=== PATIENT | female | born 1940 | race Caucasian/White ===

== ENCOUNTER 2018-05-05 10:45 | Observation (INO) | payer OTHER, MEDICARE ==
--- NOTE | 2018-05-05 11:07 | PDOC ---
History of Present Illness <Sage Knox - Last Filed: 05/05/18 13:58> - General History Source: Patient Exam Limitations: No Limitations <Micheal Gutierrez - Last Filed: 05/05/18 14:30> - General Chief Complaint: Syncope/Near Syncope Stated Complaint: Syncope/Near Syncope Time Seen by Provider: 05/05/18 11:05 - History of Present Illness Initial Comments: 05/05/18 11:44 78y F hx of parkinsons, htn, presents with a presyncopal episode. Patient states she was feeling well this morning was brushing her teeth when she started to feel unwell, as she was leaving the bathroom her helped her assist her to a laying position on the floor. The patient denies any LOC however upon arrival of FD, they noted the patient was low lethargic, had weak pulses. By the time EMS arrived they noticed pts bp was int he 60s, and her mental status seemed to be improving. They did an EKG that appeared to be vfib. shortly aftewards the pt regained mental status. The patient states that she recalls being laid down and complaining to her about the dirty carpet - and recalls conversations the fire department was having upon their arrival and does not think she actually had LOC. She does complain of some mild abdominal cramping this morning when she was brushing her teeth and she does endorse having a loose bowel movement during her presyncopal episode, etc. abdominal pain is since resolved. The patient states she feels well denied any associated chest pain, lightheadedness, palpitations, nausea, vomiting, diaphoresis, diarrhea, BPR, melena, fever, chills, cough, shortness of breath, COCRHAN. PMD: Rosc card: gitig 05/05/18 12:26 (BrendaMicheal) Past History <Sage Knox - Last Filed: 05/05/18 13:58> - Past Medical History Anemia: No Asthma: No Cancer: No Cardiac Disorders: No CVA: No COPD: No CHF: No Dementia: No Diabetes: No GI Disorders: No Disorders: No HTN: Yes Hypercholesterolemia: No Liver Disease: No Seizures: No Thyroid Disease: Yes (parkinsons,) - Surgical History Abdominal Surgery: Yes (gb 26 yrs ago) Appendectomy: No Cardiac Surgery: No Cholecystectomy: Yes Lung Surgery: No Neurologic Surgery: No (2008) Orthopedic Surgery: No - Suicide/Smoking/Psychosocial Hx Smoking History: Former smoker Have you smoked in the past 12 months: No If you are a former smoker, when did you quit?: 45 years ago Information on smoking cessation initiated: No Hx Alcohol Use: No Drug/Substance Use Hx: No Substance Use Type: None Hx Substance Use Treatment: No <Micheal Gutierrez - Last Filed: 05/05/18 14:30> - Past Medical History Allergies/Adverse Reactions: Allergies Allergy/AdvReac Type Severity Reaction Status Date / Time iodine [Iodine] Allergy Intermediate Hives Verified 05/05/18 11:03 meperidine HCl [From Demerol] Allergy Intermediate Verified 05/05/18 11:03 morphine Allergy Intermediate Verified 05/05/18 11:03 chocolate flavor Allergy Verified 05/05/18 11:03 Penicillins Allergy Verified 05/05/18 11:03 MYCINS Allergy Intermediate Uncoded 05/05/18 11:03 Home Medications: Ambulatory Orders Aspirin [ASA -] 81 mg PO DAILY 02/13/16 Atorvastatin Ca [Lipitor] 10 mg PO HS 02/13/16 Carbidopa/Levodopa [Carbidopa-Levodopa 25-100 Tab] 2 each PO QID 02/13/16 Fosinopril Sodium [Fosinopril Sodium -] 20 mg PO ASDIR 02/13/16 Cardiac Specific PMH - Complaint Specific PMHX Pacemaker: No <Micheal Gutierrez - Last Filed: 05/05/18 14:30> Review of Systems <Sage Knox - Last Filed: 05/05/18 13:58> - Review of Systems Able to Perform ROS?: Yes <Micheal Gutierrez - Last Filed: 05/05/18 14:30> - Review of Systems Comments:: 05/05/18 12:17 Constitutional - no reported Fever, Chills, HEENT: no reported vision changes, sore throat Respiratory: no reported cough, sob, hemoptysis Cardiac: +presyncope no reported chest pain, palpitations, light headedness, leg swelling Abd/GI: + abd pain, diarrhea, no reported nausea, vomiting, blood per rectum, melena, : no reported dysuria, frequency, discharge Musculskelatal - no reported back pain, joint swelling skin - no reported bruising, erythema, rash neurological: no reported headache, numbness, focal weakness, tingling, ataxia, hematologic: no reported easy bruising, easy bleeding (Micheal Gutierrez) *Physical Exam <Sage Knox - Last Filed: 05/05/18 13:58> <Micheal Gutierrez - Last Filed: 05/05/18 14:30> - Vital Signs Last Vital Signs Temp Pulse Resp BP Pulse Ox 97.2 F L 69 20 123/42 L 97 05/05/18 10:54 05/05/18 12:03 05/05/18 12:03 05/05/18 12:03 05/05/18 12:03 - Physical Exam Comments: 05/05/18 12:18 GENERAL: The patient is awake, alert, and fully oriented, Nontoxic - in no acute distress. HEAD: Normocephalic, atraumatic. EYES: extraocular movements intact, sclera anicteric, conjunctiva clear. ENT: Normal voice, Moist mucous membranes. NECK: Normal range of motion, supple LUNGS: Breath sounds equal, clear to auscultation bilaterally. No wheezes, no rhonchi, no rales. HEART: Regular rate and rhythm, normal S1 and S2 without murmur, rub or gallop. ABDOMEN: Soft, nontender, No guarding, no rebound. No CVA tenderness EXTREMITIES: trace edema, rigidity, +tremors NEUROLOGICAL: No facial assymetry, Normal speech, PSYCH: Normal mood, normal affect. SKIN: Warm, Dry, normal turgor, (Micheal Gutierrez) Heart Score/ECG Review <Sage Knox - Last Filed: 05/05/18 13:58> <Micheal Gutierrez - Last Filed: 05/05/18 14:30> - ECG Impressions Comment:: 05/05/18 12:19 Twelve-lead EKG was performed and reviewed by me. There is normal sinus rhythm with a normal rate. rate of 66 The axis is normal. (Micheal Gutierrez) - Procedure Monitoring Vital Signs: Procedure Monitoring Vital Signs Temperature 97.2 F L 05/05/18 10:54 Pulse Rate 69 05/05/18 12:03 Respiratory Rate 20 05/05/18 12:03 Blood Pressure 123/42 L 05/05/18 12:03 O2 Sat by Pulse Oximetry (%) 97 05/05/18 12:03 ED Treatment Course - LABORATORY CBC & Chemistry Diagram: 05/05/18 11:30 05/05/18 11:30 <Sage Knox - Last Filed: 05/05/18 13:58> - LABORATORY CBC & Chemistry Diagram: 05/05/18 11:30 05/05/18 11:30 <Micheal Gutierrez - Last Filed: 05/05/18 14:30> - ADDITIONAL ORDERS Additional order review: Laboratory Results 05/05/18 05/05/18 05/05/18 11:30 11:30 11:30 PT with INR 11.80 INR 1.00 Sodium 136 Potassium 4.1 Chloride 103 Carbon Dioxide 22 Anion Gap 11 BUN 17 Creatinine 0.9 Creat Clearance w eGFR > 60 Random Glucose 110 H Calcium 9.2 Magnesium 1.9 Total Bilirubin 0.6 AST 20 ALT 25 Alkaline Phosphatase 76 Creatine Kinase 78 Troponin I < 0.02 B-Natriuretic Peptide 169.2 Total Protein 7.4 Albumin 4.1 05/05/18 11:30 RBC 4.09 MCV 99.8 H MCHC 34.2 RDW 13.7 MPV 8.4 Neutrophils % 92.3 H D Lymphocytes % 4.0 L D Monocytes % 2.9 L Eosinophils % 0.6 D Basophils % 0.2 - RADIOLOGY Radiology Studies Ordered: Category Date Time Status CHEST X-RAY PORTABLE* [RAD] Stat Radiology 05/05/18 11:10 Completed Medical Decision Making <Sage Knox - Last Filed: 05/05/18 13:58> <Micheal Gutierrez - Last Filed: 05/05/18 14:30> - Medical Decision Making 05/05/[address] Saba at 13:12. Awaiting call back from Cardiology at 13:18. Case discussed with Dr. Silva Cardiology at 13:56. (Sage Knox) 05/05/18 12:26 Concern for possible V. 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 We'll obtain blood work, troponins, electrolytes. Will discuss with cardiology and her primary care doctor, anticipate admission 05/05/18 13:43 The patient's lab work was reviewed it is notable for a elevated leukocytosis, unclear source of infection, awaiting UA. She has a left lites were unremarkable Patient has been normal sinus rhythm since her arrival. Question of whether her original EMS tracing was artifact versus V. fib will discuss with cardiology if V. fib will place an ICU for monitoring. 05/05/18 14:[address] silva thinks it is likely due to artifacts as there are visible qrs's. stable for telemetry Case discussed in detail with admitting physician including history, physical exam and ancillary studies. Admitting physician has assumed care for the patient, will follow all pending diagnostics and will complete the evaluation and treatment. (Micheal Gutierrez) *DC/Admit/Observation/Transfer <Sage Knox - Last Filed: 05/05/18 13:58> - Discharge Dispostion Decision to Admit order: Yes <Micheal Gutierrez - Last Filed: 05/05/18 14:30> Diagnosis at time of Disposition: Pre-syncope - Discharge Dispostion Condition at time of disposition: Stable - Attestations Scribe Attestion: Documentation prepared by Sage Knox, acting as neuropsychology medical consultant for Micheal Gutierrez MD. (Sage Knox)
[2018-05-05] MEDS ORDERED: CARBIDOPA/LEVODOPA 25/100 TABLET (FP) ONE ×2 (11:13→15:41)
[2018-05-05 11:58] LABS: BASO % 0.2 % (0-2.0); EOS % 0.6 % (0-4.5); HEMATOCRIT 40.8 % (32.4-45.2); MCH 34.1 pg (25.7-33.7); MCHC 34.2 g/dl (32.0-36.0); MEAN CELL VOLUME 99.8 fl (80-96); MEAN PLT VOLUME 8.4 fl (7.5-11.1); MONO % 2.9 % (3.8-10.2); NEUT % 92.3 % (42.8-82.8); PLATELET COUNT 247 K/MM3 (134-434); RBC 4.09 M/mm3 (3.60-5.2); RDW 13.7 % (11.6-15.6); WHITE BLOOD COUNT 15.4 K/mm3 (4.0-10.0)
[2018-05-05 12:23] LABS: PROTHROMBIN TIME (PATIENT) 11.8 SEC (9.7-13.0)
[2018-05-05 12:37] LABS: ALBUMIN 4.1 g/dl (3.4-5.0); ALK PHOS 76 U/L (45-117); ANION GAP 11 MMOL/L (8-16); BILIRUBIN,TOTAL 0.6 mg/dL (0.2-1); BLOOD UREA NITROGEN 17 mg/dL (7-18); CALCIUM 9.2 mg/dL (8.5-10.1); CHLORIDE 103 mmol/L (98-107); CO2 22 mmol/L (21-32); CREATININE 0.9 mg/dL (0.55-1.3); GLUCOSE,RANDOM 110 mg/dL (74-106); MAGNESIUM 1.9 mg/dL (1.8-2.4); POTASSIUM 4.1 mmol/L (3.5-5.1); SGOT/AST 20 U/L (15-37); SGPT/ALT 25 U/L (13-61); SODIUM 136 mmol/L (136-145); TOT PROT 7.4 g/dl (6.4-8.2)
--- NOTE | 2018-05-05 13:42 | EKG ---
Test Reason : Blood Pressure : / mmHG Vent. Rate : 066 BPM Atrial Rate : 066 BPM P-R Int : 144 ms QRS Dur : 092 ms QT Int : 410 ms P-R-T Axes : 089 -22 035 degrees QTc Int : 429 ms NORMAL SINUS RHYTHM BASELINE ARTIFACT WHEN COMPARED WITH ECG OF 13-FEB-2016 15:37, DIFFICULT TO COMPARE DUE TO PREVIOUS ECG ARTIFACTS Confirmed by DELFINO MARQUEZ MD ([id number]) on 05/05/2018 1:41:57 PM Referred By: Confirmed By:DELFINO MARQUEZ MD
--- NOTE | 2018-05-05 14:19 | HP ---
Admitting History and Physical - Primary Care Physician PCP: Daquan Saba - Admission Chief Complaint: pre-syncope History of Present Illness: 78 year old female pmh of HTN, HLD, Parkinson's disease presents with a pre- syncopal episode this am. Pt reports she was in the bathroom after having an episode of non bloody diarrhea and when leaving the bathroom, she felt very weak /fatigued where she was assisted to the floor by family. Son reports pt was lethargic during the episode which improved within half an hour or so. Pt denies any LOC or prodromal symptoms such as chest pain, lightheadedness, nausea , dizziness. She also denies any falls or trauma. Pt denies any fever/chills, sick contacts, dysuria, n/v, recent medication change. Upon arrival of EMS, pt' s BP was in 60s, ekg revealed a rhythm appeared to be vfib. Otherwise, pt reports feeling well at the moment without complaints. In ED, pt in NSR. Labs unremarkable. Discussed w/ cardiology, suspect possible artifact. 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: Parkinson's (s/p deep brain stimulator) Cardiovascular: Yes: HTN, Hyperlipdemia Heme/Onc: Yes: Cancer (lerft breast ca s/p lumpectomy, xrt) Musculoskeletal: Yes: Osteoarthritis, Other (scoliosis, cervical stenosis) - Past Surgical History Past Surgical History: Yes: Breast Biopsy, Cataract Removal, Cholecystectomy, Hysterectomy - Smoking History Smoking history: Former smoker Have you smoked in the past 12 months: No If you are a former smoker, when did you quit?: 45 years ago - Alcohol/Substance Use Hx Alcohol Use: No History of Substance Use: reports: None - Social History Usual Living Arrangement: Yes: With Spouse ADL: Family Assistance History of Recent Travel: No Home Medications - Allergies Allergies/Adverse Reactions: Allergies Allergy/AdvReac Type Severity Reaction Status Date / Time iodine [Iodine] Allergy Intermediate Hives Verified 05/05/18 11:03 meperidine HCl [From Demerol] Allergy Intermediate Verified 05/05/18 11:03 morphine Allergy Intermediate Verified 05/05/18 11:03 chocolate flavor Allergy Verified 05/05/18 11:03 Penicillins Allergy Verified 05/05/18 11:03 MYCINS Allergy Intermediate Uncoded 05/05/18 11:03 - Home Medications Home Medications: Ambulatory Orders Aspirin [ASA -] 81 mg PO DAILY 02/13/16 Atorvastatin Ca [Lipitor] 10 mg PO HS 02/13/16 Carbidopa/Levodopa [Carbidopa-Levodopa 25-100 Tab] 2 each PO TID 02/13/16 Fosinopril Sodium [Fosinopril Sodium -] 20 mg PO DAILY 02/13/16 Carbidopa/Levodopa [Carbidopa-Levodopa 25-100 Tab] 1 mg PO HS PRN 05/05/18 Family Disease History - Family Disease History Family Disease History: Other: Father (sepsis, at age 44), Mother (HTN, CVA ) Review of Systems Findings/Remarks: as per hpi Physical Examination Vital Signs: Vital Signs Temperature 97.2 F L 05/05/18 10:54 Pulse Rate 69 05/05/18 12:03 Respiratory Rate 20 05/05/18 12:03 Blood Pressure 123/42 L 05/05/18 12:03 O2 Sat by Pulse Oximetry (%) 97 05/05/18 12:03 Constitutional: Yes: Well Nourished, No Distress Cardiovascular: Yes: Regular Rate and Rhythm Respiratory: Yes: WNL, Regular, CTA Bilaterally. No: Accessory Muscle Use, SOB , Tachypnea, Wheezes Gastrointestinal: Yes: WNL, Normal Bowel Sounds, Soft, Abdomen, Obese. No: Distention, Tenderness Musculoskeletal: Yes: Back Pain Extremities: Yes: WNL Edema: Yes Edema: LLE: Trace, RLE: Trace Neurological: Yes: Alert, Oriented, Pre-Existing Deficit, Tremors. No: Lethargy Psychiatric: Yes: WNL, Alert, Oriented Labs: CBC, BMP 05/05/18 11:30 05/05/18 11:30 Problem List - Problems (1) Pre-syncope Assessment/Plan: suspect 2/2 vasovagal ekg- nsr, suspect vfib artifact pt at baseline now orthostatics ordered echo ordered carotids w/ b/l w/ hemodynamically sig stenosis, 50-69% vascular consulted, defer cta to vascular case discussed w/ cardiology tele monitoring Code(s): R55 - SYNCOPE AND COLLAPSE (2) Leukocytosis Assessment/Plan: trend if further diarrhea, will order cdiff ua/uc pending monitor Code(s): D72.829 - ELEVATED WHITE BLOOD CELL COUNT, UNSPECIFIED Qualifiers: Leukocytosis type: unspecified Qualified Code(s): D72.829 - Elevated white blood cell count, unspecified (3) Parkinson disease Assessment/Plan: stable continue sinemet PT eval Code(s): G20 - PARKINSON'S DISEASE (4) HTN (hypertension) Assessment/Plan: controlled continue home regimen Code(s): I10 - ESSENTIAL (PRIMARY) HYPERTENSION Qualifiers: Hypertension type: essential hypertension Qualified Code(s): I10 - Essential (primary) hypertension (5) HLD (hyperlipidemia) Assessment/Plan: chronic continue statin Code(s): E78.5 - HYPERLIPIDEMIA, UNSPECIFIED
--- NOTE | 2018-05-05 15:11 | CON.CARD ---
Consult Consult Specialty:: Cardiology Referred by:: Medicine Reason for Consultation:: near syncope - History of Present Illness Chief Complaint: near syncope History of Present Illness: 78F h/o parkinson's s/p brain stimulator, HTN p/w near syncope. Harrison unwell this morning after brushing teeth, felt lethargic, lightheadedness and son helped her to lie on the floor. felt diaphoretic as well no loss of consciousness, no chest pain, palps, dyspnea. Noted by EMS reportedly to have BP in 60s at the time as well, EKG concerning for vfib, was done with brain stimulator turned on, patient has tremor from parkinson's (tracing reviewed, likely sinus with artifact). 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 Cardio/Vascular: Yes: HTN Musculoskeletal: Yes: Osteoarthritis, Other (scoliosis, cervical stenosis) - Past Surgical History Past Surgical History: Yes: Breast Biopsy, Cataract Removal, Cholecystectomy, Hysterectomy - Alcohol/Substance Use Hx Alcohol Use: No - Smoking History Smoking history: Former smoker Have you smoked in the past 12 months: No If you are a former smoker, when did you quit?: 45 years ago Home Medications - Allergies Allergies/Adverse Reactions: Allergies Allergy/AdvReac Type Severity Reaction Status Date / Time iodine [Iodine] Allergy Intermediate Hives Verified 05/05/18 11:03 meperidine HCl [From Demerol] Allergy Intermediate Verified 05/05/18 11:03 morphine Allergy Intermediate Verified 05/05/18 11:03 chocolate flavor Allergy Verified 05/05/18 11:03 Penicillins Allergy Verified 05/05/18 11:03 MYCINS Allergy Intermediate Uncoded 05/05/18 11:03 - Home Medications Home Medications: Ambulatory Orders Aspirin [ASA -] 81 mg PO DAILY 02/13/16 Atorvastatin Ca [Lipitor] 10 mg PO HS 02/13/16 Carbidopa/Levodopa [Carbidopa-Levodopa 25-100 Tab] 2 each PO TID 02/13/16 Fosinopril Sodium [Fosinopril Sodium -] 20 mg PO DAILY 02/13/16 Carbidopa/Levodopa [Carbidopa-Levodopa 25-100 Tab] 1 mg PO HS PRN 05/05/18 Family Disease History - Family Disease History Family Disease History: Other: Father (sepsis, at age 44), Mother (HTN, CVA ) Review of Systems - Review of Systems Constitutional: reports: No Symptoms Eyes: reports: No Symptoms HENT: reports: No Symptoms Neck: reports: No Symptoms Cardiovascular: reports: No Symptoms Respiratory: reports: No Symptoms Gastrointestinal: reports: No Symptoms Genitourinary: reports: No Symptoms Musculoskeletal: reports: No Symptoms Integumentary: reports: No Symptoms Neurological: reports: No Symptoms Endocrine: reports: No Symptoms Hematology/Lymphatic: reports: No Symptoms Psychiatric: reports: No Symptoms Vital Signs: Vital Signs Temperature 97.2 F L 05/05/18 10:54 Pulse Rate 79 05/05/18 15:02 Respiratory Rate 20 05/05/18 15:02 Blood Pressure 137/47 L 05/05/18 15:02 O2 Sat by Pulse Oximetry (%) 97 05/05/18 12:03 Constitutional: Yes: No Distress, Calm Eyes: Yes: Conjunctiva Clear, EOM Intact HENT: Yes: Atraumatic, Normocephalic Neck: Yes: Supple, Trachea Midline Respiratory: Yes: Regular, CTA Bilaterally Gastrointestinal: Yes: Normal Bowel Sounds, Soft Cardiovascular: Yes: Regular Rate and Rhythm JVD: No Carotid Bruit: No PMI: Non-Displaced Heart Sounds: Yes: S1, S2 Musculoskeletal: No: Back Pain Extremities: No: Cold Edema: No Peripheral Pulses WNL: Yes Peripheral Pulses: 2+ Left Doralis Pedis, 2+ Right Dorsalis Pedis Integumentary: No: Jaundice Neurological: Yes: Alert, Oriented, Tremors Psychiatric: No: Agitated - Other Data Labs, Other Data: CBC, BMP 05/05/18 11:30 05/05/18 11:30 INR, PTT INR 1.00 (0.83-1.09) 05/05/18 11:30 Troponin, BNP 05/05/18 05/05/18 11:30 11:30 Troponin I < 0.02 B-Natriuretic Peptide 169.2 Troponin, BNP 05/05/18 05/05/18 11:30 11:30 Troponin I < 0.02 B-Natriuretic Peptide 169.2 Assessment/Plan EKG 04/2018 sinus, nl intervals, no ischemic changs, significant baseline artifact echo 02/2016: tds; nl lv, rv tds, butch, mod tr, nl rvsp carotid ultrasound 04/2018 mod size plaques with calcifications at R common carotid bifurcation with 50-69% stenosis, mod size plaques with calcifications at L common carotid bifurcation and bulb with stenosis 50-69% tele: sinus, significant artifact Assessment/Plan near syncope - reviewed tracing from EMS, likely artifact from parkinson's tremor also deep brain stimulator on, repeat EKG sinus rhythm - history most consistent with vasovagal - trop neg x 1 - monitoring on tele - echo ordered, if benign no further cardiac workup HTN -presently controlled, cont home meds carotid stenosis - plaque noted bilaterally at common carotid bifurcation - less likely etiology for syncope - continue aspirin, statin HPL: -cont statin parkinson's -on meds, per pmd/neuro
[2018-05-05 15:22] LABS: ANISOCYTOSIS 1+; MACROCYTOSIS 1+; PLATELET ESTIMATE NORMAL
--- NOTE | 2018-05-05 16:26 | ECHO ---
Name: MUMTAZNALRADHA, KATHERIN Exam:Adult Echocardiogram Study Date: 05/05/2018 03:09 PM Age: 78 yrs Reason For Study: PRE SYNCOPE Height: 64 in Weight: 160 lb BSA: 1.8 m2 MMode/2D Measurements & Calculations IVSd: 0.76 cm Ao root diam: 2.7 cm LVIDd: 4.2 cm LA dimension: 3.5 cm LVIDs: 3.0 cm LVPWd: 0.81 cm EDV(Teich): 78.0 ml ESV(Teich): 35.0 ml Procedure The study was technically limited with all images being suboptimal in quality. There was technical li mitations during this study due to uncooperative patient. A limited two-dimensional transthoracic echocardiogra m was performed (2D). Left Ventricle The left ventricle is normal in size. Left ventricular systolic function is normal. Ejection Fraction = 55- 60%. No regional wall motion abnormalities noted. Right Ventricle The right ventricle is not well visualized. Atria The left atrial size is normal. Right atrium not well visualized. Mitral Valve There is mild mitral annular calcification. There is no mitral regurgitation noted. Tricuspid Valve The tricuspid valve is not well visualized. Aortic Valve The aortic valve is not well visualized. Pulmonic Valve The pulmonic valve is not well visualized. Great Vessels The aortic root is normal size. Pericardium/Pleura There is no pericardial effusion. Interpretation Summary The study was technically limited with all images being suboptimal in quality. There was technical limitations during this study due to uncooperative patient. A limited two-dimensional transthoracic echocardiogram was performed (2D). The left ventricle is normal in size. Left ventricular systolic function is normal. No regional wall motion abnormalities noted. Ejection Fraction = 55-60%. The right ventricle is not well visualized. The left atrial size is normal. Right atrium not well visualized. There is mild mitral annular calcification. There is no pericardial effusion. Previous study is not available for comparison Zeke Knox MD 05/05/2018 04:26 PM
[2018-05-05 16:29] VITALS: BMI 29.3
[2018-05-05] MEDS: CARBIDOPA/LEVODOPA 25/100 TABLET (FP) PO SCH (20:14)
[2018-05-05] MEDS: ATORVASTATIN CA 10 MG TABLET (FP) PO SCH (22:31)
[2018-05-05 23:19] LABS: URINE APPEARANCE SLCLOUDY; URINE BILIRUBIN NEGATIVE (<2.0 mg/dL); URINE COLOR YELLOW; URINE GLUCOSE (UA) NEGATIVE (NEGATIVE); URINE KETONE TRACE (NEGATIVE); URINE LEUK ESTERASE NEGATIVE (NEGATIVE); URINE NITRITE NEGATIVE (NEGATIVE); URINE PROTEIN 1+ (NEGATIVE)
[2018-05-05 23:27] LABS: URINE MUCUS RARE
[2018-05-06] MEDS ORDERED: ACETAMINOPHEN 325 MG TABLET (FP) PO PRN (03:39)
[2018-05-06 06:09] LABS: BASO % 0.3 % (0-2.0); EOS % 0.7 % (0-4.5); HEMATOCRIT 35.6 % (32.4-45.2); HEMOGLOBIN 12.5 GM/dL (10.7-15.3); LYMPH % 9.9 % (8-40); MCH 34.4 pg (25.7-33.7); MCHC 35.1 g/dl (32.0-36.0); MEAN CELL VOLUME 97.9 fl (80-96); MEAN PLT VOLUME 8.3 fl (7.5-11.1); MONO % 10.9 % (3.8-10.2); NEUT % 78.2 % (42.8-82.8); PLATELET COUNT 207 K/MM3 (134-434); RBC 3.63 M/mm3 (3.60-5.2); RDW 13.7 % (11.6-15.6); WHITE BLOOD COUNT 5.5 K/mm3 (4.0-10.0)
[2018-05-06 06:19] LABS: CHOLESTEROL 119 mg/dL (50-200); HDL CHOLESTEROL 67 mg/dL (40-60); TRIGLYCERIDES 69 mg/dL (0-150)
[2018-05-06 06:25] LABS: ANION GAP 8 MMOL/L (8-16); BLOOD UREA NITROGEN 16 mg/dL (7-18); CALCIUM 7.6 mg/dL (8.5-10.1); CHLORIDE 103 mmol/L (98-107); CO2 25 mmol/L (21-32); CREATININE 0.7 mg/dL (0.55-1.3); GLUCOSE,RANDOM 96 mg/dL (74-106); MAGNESIUM 1.8 mg/dL (1.8-2.4); PHOSPHOROUS 2.6 mg/dL (2.5-4.9); POTASSIUM 3.8 mmol/L (3.5-5.1); SODIUM 135 mmol/L (136-145)
--- NOTE | 2018-05-06 07:39 | CONSULT ---
- Consultation REQUESTING PROVIDER: Ravi Jackson CONSULT REQUEST: We have been asked to surgically evaluate this patient for carotid stenosis PCP: Navid Hinojosa MD HPI: Called to eval 78yo female w/ PMHx as noted below. Per patient, while brushing her teeth yesterday morning, suddenly became dizzy/lightheaded. Called for her son to help her lie down on the floor. Patient states that while laying on the floor she became diaphoretic. Informs me that the event only lasted a minute or so...quickly resolved on it's own per patient. Denies CP, palpitations , COCHRAN, SOB prior too episode described above. Denies n/v/f/c, peripheral edema, irregular heart beat. Denies HAMPTON, parasthesias or mental status changes. States she has experienced this once before a few years ago, cardiac work-up negative per patient. Patient states she's had diarrhea prior to coming to hospital and that family members at home also have similar symptoms. While in the ED patient had a Carotid U/S as part of her NEAR SYNCOPE episode -- > moderate size plaques with calcifications at RCC bifurcation with 50-69% stenosis, moderate size plaques with calcifications at LCC bifurcation and bulb with stenosis 50-69%. EKG NSR @ 66bpm. Smoking history: Former smoker (quit 45 years ago) PMHx: Parkinson's, HTN, Osteoarthritis, Other (scoliosis, cervical stenosis) PSHx: Breast Biopsy, Cataract Removal, Cholecystectomy, Hysterectomy. Deep brain stimulator Home Meds Aspirin [ASA -] 81 mg PO DAILY 02/13/16 Atorvastatin Ca [Lipitor] 10 mg PO HS 02/13/16 Carbidopa/Levodopa [Carbidopa-Levodopa 25-100 Tab] 2 each PO TID 02/13/16 Fosinopril Sodium [Fosinopril Sodium -] 20 mg PO DAILY 02/13/16 Carbidopa/Levodopa [Carbidopa-Levodopa 25-100 Tab] 1 mg PO HS PRN 05/05/18 Allergies 3 iodine [Iodine] Allergy Intermediate Hives Verified 05/05/18 11:03 meperidine HCl [From Demerol] Allergy Intermediate Verified 05/05/18 11:03 morphine Allergy Intermediate Verified 05/05/18 11:03 chocolate flavor Allergy Verified 05/05/18 11:03 Penicillins Allergy Verified 05/05/18 11:03 MYCINS Allergy Intermediate Uncoded 05/05/18 11:03 ROS: CONSTITUTIONAL: Absent: generalized weakness, malaise, loss of appetite, weight change CARDIOVASCULAR: Absent: See HPI RESPIRATORY: Absent: cough, wheezing, stridor, hemoptysis GASTROINTESTINAL:Absent: abdominal pain, abdominal distension, diarrhea, constipation, melena, hematochezia GENITOURINARY: Absent: dysuria, frequency, urgency, hesitancy, hematuria, flank pain, genital pain MUSCULOSKELETAL: Absent: myalgia, arthralgia, joint swelling, back pain, neck pain SKIN: Absent: rash, itching, pallor HEMATOLOGIC/IMMUNOLOGIC: Absent: easy bleeding, easy bruising, lymphadenopathy NEUROLOGIC: Absent: focal weakness, unsteady gait, seizure PSYCHIATRIC: Absent: anxiety, depression, suicidal or homicidal ideation, hallucinations. PE: GENERAL: Awake, alert, and fully oriented, in no acute distress. HEAD: Normal with no signs of trauma. EYES: PERRL, sclera anicteric, conjunctiva clear. NECK: Normal ROM, supple without lymphadenopathy, JVD, or masses. Negative bruit LUNGS: CTA bilat. No wheezes, and no crackles. No accessory muscle use. HEART: RRR. No murmurs detected. ABD: Soft, NT. ND. MUSCULOSKELETAL: Normal ROM at all joints. No bony deformities or tenderness. No CVA tenderness. UE: 2+ pulses, warm, well-perfused. No cyanosis. Cap refill <2 seconds. No peripheral edema. LE: 2+ pulses, warm, well-perfused. No calf tenderness. No peripheral edema. NEUROLOGICAL: Normal speech, gait not observed. PSYCH: Cooperative. Good eye contact. Appropriate mood and affect. SKIN: Warm, dry, normal turgor, no rashes or lesions noted. Last Vital Signs Temp Pulse Resp BP Pulse Ox 98.6 F 59 L 16 132/53 L 94 L 05/06/18 06:00 05/06/18 06:00 05/06/18 06:00 05/06/18 06:00 05/06/18 05:48 CBC, BMP 05/06/18 05:15 05/06/18 05:15 INR, PTT INR 1.00 (0.83-1.09) 05/05/18 11:30 Problem List - Problems (1) Near syncope Assessment/Plan: Admitted to [facility] s/p near syncopal episode. Mild dehydration most likely secondary to diarrhea (resolved) coupled with decreased PO intake Cont Tele monitoring Findings on U/S reviewed Cardio following DVT PPX No vascular surgical intervention Replete elytes PRN Above plan discussed with Dr. Marvin and agrees Code(s): R55 - SYNCOPE AND COLLAPSE (2) HTN (hypertension) Code(s): I10 - ESSENTIAL (PRIMARY) HYPERTENSION Qualifiers: Hypertension type: essential hypertension Qualified Code(s): I10 - Essential (primary) hypertension (3) Parkinson disease Code(s): G20 - PARKINSON'S DISEASE Visit type - Case Type Case Type: ED Admission - Emergency Emergency Visit: Yes ED Registration Date: 05/05/18 Care time: The patient presented to the Emergency Department on the above date and was hospitalized for further evaluation of their emergent condition. - New patient This patient is new to me today: Yes Date on this admission: 05/06/18
[2018-05-06] MEDS: LISINOPRIL 20 MG TABLET (FP) PO SCH ×2 (08:32→09:29)
--- NOTE | 2018-05-06 09:03 | PN ---
Progress Note (short form) - Note Progress Note: s: no chest pain, palps, dizziness, dyspnea, edema Vital Signs: Vital Signs Period Temp Pulse Resp BP Sys/Hernandez Pulse Ox Last 24 Hr 97.2 F-100.1 F 59-79 16-22 116-158/42-66 92-97 Constitutional: Yes: No Distress, Calm Eyes: Yes: Conjunctiva Clear, EOM Intact HENT: Yes: Atraumatic, Normocephalic Neck: Yes: Supple, Trachea Midline Respiratory: Yes: Regular, CTA Bilaterally Gastrointestinal: Yes: Normal Bowel Sounds, Soft Cardiovascular: Yes: Regular Rate and Rhythm JVD: No Carotid Bruit: No PMI: Non-Displaced Heart Sounds: Yes: S1, S2 Musculoskeletal: No: Back Pain Extremities: No: Cold Edema: No Peripheral Pulses WNL: Yes Peripheral Pulses: 2+ Left Doralis Pedis, 2+ Right Dorsalis Pedis Integumentary: No: Jaundice Neurological: Yes: Alert, Oriented, Tremors Psychiatric: No: Agitated Assessment/Plan EKG 04/2018 sinus, nl intervals, no ischemic changs, significant baseline artifact echo 02/2016: tds; nl lv, rv tds, butch, mod tr, nl rvsp echo 04/2018 tds, nl LV fn, RV not well visualized, mild MAC carotid ultrasound 04/2018 mod size plaques with calcifications at R common carotid bifurcation with 50-69% stenosis, mod size plaques with calcifications at L common carotid bifurcation and bulb with stenosis 50-69% tele: sinus, artifact Assessment/Plan near syncope - reviewed tracing from EMS, likely artifact from parkinson's tremor also deep brain stimulator on, repeat EKG sinus rhythm - history most consistent with vasovagal - trop neg x 2 - no events on tele - echo unremarkable HTN -presently controlled, cont home meds carotid stenosis - plaque noted bilaterally at common carotid bifurcation - less likely etiology for syncope - continue aspirin, statin HPL: -cont statin parkinson's -on meds, per pmd/neuro
--- NOTE | 2018-05-06 09:54 | PN ---
Progress Note, Physician Chief Complaint: Pt lying in bed in no acute distress. reports feeling well. no more diarrhea since yesterday. denies any chest pain, sob, n/v. pt reports everyone at home is also sick w/ fever/diarrhea - Current Medication List Current Medications: Active Medications Acetaminophen (Tylenol -) 650 mg PO Q6H PRN PRN Reason: Fever Or Pain Level 1-5 Last Admin: 05/06/18 03:56 Dose: 650 mg Aspirin (Asa -) 81 mg PO DAILY [facility] Atorvastatin Calcium (Lipitor -) 10 mg PO HS [facility] Last Admin: 05/05/18 22:31 Dose: 10 mg Carbidopa/Levodopa (Sinemet 25/100 -) 2 each PO TID@1000,1400,1800 [facility] Last Admin: 05/05/18 20:14 Dose: 2 each Lisinopril (Prinivil) 20 mg PO DAILY [facility] Last Admin: 05/06/18 09:29 Dose: Not Given Magnesium Sulfate (Magnesium Sulf 2 G/50 Ml Bag) 2 gm IVPB ONCE ONE Stop: 05/06/18 10:01 - Objective Vital Signs: Vital Signs Temperature 98.6 F 05/06/18 06:00 Pulse Rate 59 L 05/06/18 06:00 Respiratory Rate 16 05/06/18 06:00 Blood Pressure 132/53 L 05/06/18 06:00 O2 Sat by Pulse Oximetry (%) 94 L 05/06/18 09:04 Constitutional: Yes: Well Nourished, No Distress Cardiovascular: Yes: Regular Rate and Rhythm Respiratory: Yes: WNL, Regular, CTA Bilaterally, On Nasal O2. No: Accessory Muscle Use, SOB, Tachypnea, Wheezes Gastrointestinal: Yes: WNL, Normal Bowel Sounds, Soft, Abdomen, Obese. No: Distention, Tenderness Genitourinary: Yes: WNL Extremities: Yes: WNL Edema: No Neurological: Yes: WNL, Alert, Oriented, Tremors Psychiatric: Yes: WNL, Alert, Oriented Labs: CBC, BMP 05/06/18 05:15 05/06/18 05:15 INR, PTT INR 1.00 (0.83-1.09) 05/05/18 11:30 Assessment/Plan (1) Pre-syncope Assessment/Plan: pt currently at baseline suspect possible vasovagal episode at home ekg- nsr echo unremarkable carotids w/ b/l w/ hemodynamically sig stenosis, 50-69%- no further intervention per vascular case discussed w/ cardiology tele monitoring Code(s): R55 - SYNCOPE AND COLLAPSE (2) Leukocytosis Assessment/Plan: resolved Code(s): D72.829 - ELEVATED WHITE BLOOD CELL COUNT, UNSPECIFIED Qualifiers: Leukocytosis type: unspecified Qualified Code(s): D72.829 - Elevated white blood cell count, unspecified (3) Fever Assessment/Plan: febrile overnight family sick w/ diarrhea/fever suspect viral gasteroenteritis await blood/urine cultures pt needs to afebrile for 24 hours before d/c Code(s): R50.9 - FEVER, UNSPECIFIED Qualifiers: Encounter type: initial encounter (4) Parkinson disease Assessment/Plan: stable continue sinemet PT eval Code(s): G20 - PARKINSON'S DISEASE (5) HTN (hypertension) Assessment/Plan: controlled continue home regimen Code(s): I10 - ESSENTIAL (PRIMARY) HYPERTENSION Qualifiers: Hypertension type: essential hypertension Qualified Code(s): I10 - Essential (primary) hypertension (6) HLD (hyperlipidemia) Assessment/Plan: chronic continue statin Code(s): E78.5 - HYPERLIPIDEMIA, UNSPECIFIED Dispo: Home w/ VNS, anticipate discharge tomorrow if no clinical changes
[2018-05-06] MEDS ORDERED: ASPIRIN 81 MG CHEWABLE TABLETS PO SCH ×2 (10:00→22:00)
[2018-05-06] MEDS ORDERED: MAGNESIUM 2GM/50ML STERILE WATER IVPB IVPB ONE (10:00)
[2018-05-06] MEDS: CARBIDOPA/LEVODOPA 25/100 TABLET (FP) PO SCH ×3 (10:08→18:32)
[2018-05-06] MEDS: ATORVASTATIN CA 10 MG TABLET (FP) PO SCH (21:54)
[2018-05-07 06:01] LABS: BASO % 0.6 % (0-2.0); EOS % 6.5 % (0-4.5); HEMATOCRIT 35.8 % (32.4-45.2); HEMOGLOBIN 12.5 GM/dL (10.7-15.3); LYMPH % 22.5 % (8-40); MCH 34.4 pg (25.7-33.7); MCHC 34.8 g/dl (32.0-36.0); MEAN CELL VOLUME 98.8 fl (80-96); MEAN PLT VOLUME 8.7 fl (7.5-11.1); MONO % 12.2 % (3.8-10.2); NEUT % 58.2 % (42.8-82.8); PLATELET COUNT 188 K/MM3 (134-434); RBC 3.62 M/mm3 (3.60-5.2); RDW 13.5 % (11.6-15.6); WHITE BLOOD COUNT 5.7 K/mm3 (4.0-10.0)
[2018-05-07 06:33] LABS: ANION GAP 8 MMOL/L (8-16); BLOOD UREA NITROGEN 17 mg/dL (7-18); CALCIUM 8.1 mg/dL (8.5-10.1); CHLORIDE 105 mmol/L (98-107); CO2 25 mmol/L (21-32); CREATININE 0.6 mg/dL (0.55-1.3); GLUCOSE,RANDOM 86 mg/dL (74-106); MAGNESIUM 2.1 mg/dL (1.8-2.4); PHOSPHOROUS 2.8 mg/dL (2.5-4.9); POTASSIUM 3.9 mmol/L (3.5-5.1); SODIUM 137 mmol/L (136-145)
--- NOTE | 2018-05-07 09:33 | DS ---
Physical Examination Vital Signs: Vital Signs Temperature 98.4 F 05/07/18 06:00 Pulse Rate 52 L 05/07/18 06:00 Respiratory Rate 18 05/07/18 06:00 Blood Pressure 134/58 L 05/07/18 06:00 O2 Sat by Pulse Oximetry (%) 93 L 05/06/18 20:00 Constitutional: Yes: Well Nourished, No Distress, Calm Cardiovascular: Yes: Regular Rate and Rhythm Respiratory: Yes: WNL, Regular, CTA Bilaterally. No: Tachypnea, Wheezes Gastrointestinal: Yes: WNL, Normal Bowel Sounds, Soft. No: Distention, Tenderness Renal/: Yes: WNL Extremities: Yes: WNL Edema: No Neurological: Yes: WNL, Alert, Oriented Psychiatric: Yes: WNL, Alert, Oriented Labs: CBC, BMP 05/07/18 05:15 05/07/18 05:15 Discharge Summary Reason For Visit: PRE SYNCOPE,PARKINSON'S DISEASE Current Active Problems Fever (Acute) HLD (hyperlipidemia) (Acute) Near syncope (Acute) Pre-syncope (Acute) Hospital Course: 78 year old female admitted for evaluation of pre-syncope or suspect vfib/tach. Pt evaluated by cardiology, all cardiac work up negative, suspect rhythm artifact from tremors/dbs. Pt had fever during her course of stay, all cultures and infectious work up negative. Family at home sick w/ diarrhea/fever. Suspect viral gastroenteritis. Pt has remained in SR. vitals stable. Cleared by cardiology. Pt is medically stable for discharge home. Son informed of discharge. case discussed with pt's PCP. 35 minutes spent in discharge planning Condition: Stable - Instructions Diet, Activity, Other Instructions: resume prev diet, activity as tolerated maintain adequate hydration fall precautions follow up as directed Referrals: Tone Rice MD [Staff Physician] - 2 Weeks Daquan Saba MD [Primary Care Provider] - 1 Week Disposition: VNS/HOME HEALTH CARE - Home Medications Comprehensive Discharge Medication List: Ambulatory Orders Aspirin [ASA -] 81 mg PO DAILY 02/13/16 Atorvastatin Ca [Lipitor] 10 mg PO HS 02/13/16 Carbidopa/Levodopa [Carbidopa-Levodopa 25-100 Tab] 2 each PO TID 02/13/16 Fosinopril Sodium [Fosinopril Sodium -] 20 mg PO DAILY 02/13/16 Carbidopa/Levodopa [Carbidopa-Levodopa 25-100 Tab] 1 mg PO HS PRN 05/05/18
[2018-05-07 09:52] LABS: ANISOCYTOSIS 1+; MACROCYTOSIS 1+; PLATELET ESTIMATE NORMAL
[2018-05-07] MEDS: CARBIDOPA/LEVODOPA 25/100 TABLET (FP) PO SCH (09:54)
[2018-05-07] MEDS: LISINOPRIL 20 MG TABLET (FP) PO SCH (09:54)
--- NOTE | 2018-05-07 10:14 | PN ---
Progress Note (short form) - Note Progress Note: s: no chest pain, palps, dizziness, dyspnea, edema Vital Signs: Vital Signs Period Temp Pulse Resp BP Sys/Hernandez Pulse Ox Last 24 Hr 98 F-98.4 F 52-70 18-22 90-142/40-58 93-93 Constitutional: Yes: No Distress, Calm Eyes: Yes: Conjunctiva Clear, EOM Intact HENT: Yes: Atraumatic, Normocephalic Neck: Yes: Supple, Trachea Midline Respiratory: Yes: Regular, CTA Bilaterally Gastrointestinal: Yes: Normal Bowel Sounds, Soft Cardiovascular: Yes: Regular Rate and Rhythm JVD: No Carotid Bruit: No PMI: Non-Displaced Heart Sounds: Yes: S1, S2 Musculoskeletal: No: Back Pain Extremities: No: Cold Edema: No Peripheral Pulses WNL: Yes Peripheral Pulses: 2+ Left Doralis Pedis, 2+ Right Dorsalis Pedis Integumentary: No: Jaundice Neurological: Yes: Alert, Oriented, Tremors Psychiatric: No: Agitated Current Medications Acetaminophen (Tylenol -) 650 mg PO Q6H PRN PRN Reason: Fever Or Pain Level 1-5 Last Admin: 05/06/18 03:56 Dose: 650 mg Aspirin (Asa -) 81 mg PO HS [facility] Last Admin: 05/06/18 21:54 Dose: 81 mg Atorvastatin Calcium (Lipitor -) 10 mg PO HS [facility] Last Admin: 05/06/18 21:54 Dose: 10 mg Carbidopa/Levodopa (Sinemet 25/100 -) 2 each PO TID@1000,1400,1800 [facility] Last Admin: 05/07/18 09:54 Dose: 2 each Lisinopril (Prinivil) 20 mg PO DAILY [facility] Last Admin: 05/07/18 09:54 Dose: 20 mg Assessment/Plan EKG 04/2018 sinus, nl intervals, no ischemic changs, significant baseline artifact echo 02/2016: tds; nl lv, rv tds, btuch, mod tr, nl rvsp echo 04/2018 tds, nl LV fn, RV not well visualized, mild MAC carotid ultrasound 04/2018 mod size plaques with calcifications at R common carotid bifurcation with 50-69% stenosis, mod size plaques with calcifications at L common carotid bifurcation and bulb with stenosis 50-69% tele: sinus, artifact Assessment/Plan near syncope - reviewed tracing from EMS, likely artifact from parkinson's tremor also deep brain stimulator on, repeat EKG sinus rhythm - history most consistent with vasovagal, dehydration causing near syncope, unlikely cardiac etiology - trop neg x 2 - no events on tele - echo unremarkable HTN -presently controlled, cont home meds carotid stenosis - plaque noted bilaterally at common carotid bifurcation - less likely etiology for syncope - continue aspirin, statin HPL: -cont statin parkinson's -on meds, per pmd/neuro
[2018-05-07 10:57] VITALS: BP 147/62; PULSE 64
[2018-05-07 11:00] VITALS: TEMP 98.3
== END 2018-05-07 14:30 | disposition home health service (06) ==
LOC: JER 10:45 → JERBED 14:17 → J2W 16:28
PROVIDERS: ADMIT Internal Medicine; ATTEND Nurse Practitioner Family
PROC: 3E033GC Introduction of Other Therapeutic Substance into Peripheral Vein, Percutaneous Approach (ICD-10-PCS; principal; 2018-05-05)
DX: R55 Syncope and collapse (principal); D72.829 Elevated white blood cell count, unspecified; G20 Parkinson's disease; I10 Essential (primary) hypertension; E78.5 Hyperlipidemia, unspecified; R50.9 Fever, unspecified; Z87.891 Personal history of nicotine dependence; Z88.0 Allergy status to penicillin; Z88.6 Allergy status to analgesic agent; Z79.82 Long term (current) use of aspirin; I65.23 Occlusion and stenosis of bilateral carotid arteries
CPT/HCPCS: 36415; 71045-TC-FY; 80048; 80053; 80061; 81003; 81015; 82550; 83721; 83735; 83880; 84100; 84484; 85025; 85610; 87040; 87086; 93005; 93010; 93306-TC; 93880-TC; 94010; 96374; 97116-GP; 97161-GP; 99285-25; G0378

== ENCOUNTER 2018-12-20 17:39 | Emergency (ER) | payer OTHER, MEDICARE ==
[2018-12-20 17:54] VITALS: BP 138/84; PULSE 94; TEMP 98.8; BMI 27.4
[2018-12-20] MEDS ORDERED: SODIUM CHLORIDE 500 ML IV STA (18:51)
[2018-12-20 19:07] LABS: BASO % 0.4 % (0-2.0); EOS % 2.4 % (0-4.5); HEMATOCRIT 36.1 % (32.4-45.2); LYMPH % 15.9 % (8-40); MCH 32.9 pg (25.7-33.7); MCHC 33.2 g/dl (32.0-36.0); MEAN CELL VOLUME 99.1 fl (80-96); MEAN PLT VOLUME 8.5 fl (7.5-11.1); MONO % 8.6 % (3.8-10.2); NEUT % 72.7 % (42.8-82.8); PLATELET COUNT 249 K/MM3 (134-434); RBC 3.65 M/mm3 (3.60-5.2); WHITE BLOOD COUNT 9.2 K/mm3 (4.0-10.0)
[2018-12-20 19:16] LABS: INR 1.02 (0.83-1.09)
[2018-12-20 19:37] LABS: ALBUMIN 3.6 g/dl (3.4-5.0); ALK PHOS 90 U/L (45-117); ANION GAP 7 MMOL/L (8-16); BILIRUBIN,TOTAL 0.5 mg/dL (0.2-1); BLOOD UREA NITROGEN 14.8 mg/dL (7-18); CHLORIDE 102 mmol/L (98-107); CO2 28 mmol/L (21-32); CREATININE 0.7 mg/dL (0.55-1.3); GLUCOSE,RANDOM 91 mg/dL (74-106); MAGNESIUM 2.2 mg/dL (1.8-2.4); N-TERMINAL BNP 290.3 pg/ml (5-450); POTASSIUM 4.1 mmol/L (3.5-5.1); SGOT/AST 15 U/L (15-37); SGPT/ALT 8 U/L (13-61); SODIUM 137 mmol/L (136-145); TOT PROT 6.7 g/dl (6.4-8.2)
--- NOTE | 2018-12-20 19:58 | PDOC ---
Attending Attestation - Resident Resident Name: La NenaYair - ED Attending Attestation I have performed the following: I have examined & evaluated the patient, The case was reviewed & discussed with the resident, I agree w/resident's findings & plan - HPI HPI: 12/20/18 21:07 Pt came in for a sense of generalized weakness. She has no other complaints.She has a hx of Parkingson's disease and she has to get up 4x nightly to urinate and this has been going on for a long time. SHe has no dysuria. She has no fevers and no chills and she has a normal diet. She lives with her and her son is at her side. Pt is A+Ox3 - Physicial Exam PE: 12/20/18 21:09 Agree with resident exam. Pt has clear lung field and Normal Heart rate. SHe has no flnak pain and no abd pain. She has slight pitting edema of her legs. She has no rashes. SHe is moving all her extremities. - Medical Decision Making 12/22/18 04:05 Labs normal; UA normal; Pt reassured and she went home with her son and her son in law.
--- NOTE | 2018-12-20 20:29 | PDOC ---
History of Present Illness - General Chief Complaint: Weakness Stated Complaint: HI BLOOD PRESSURE Time Seen by Provider: 12/20/18 19:51 History Source: Patient Exam Limitations: No Limitations Past History - Past Medical History Allergies/Adverse Reactions: Allergies Allergy/AdvReac Type Severity Reaction Status Date / Time iodine [Iodine] Allergy Intermediate Hives Verified 05/05/18 11:03 meperidine HCl [From Demerol] Allergy Intermediate Verified 05/05/18 11:03 morphine Allergy Intermediate Verified 05/05/18 11:03 chocolate flavor Allergy Verified 05/05/18 11:03 Penicillins Allergy Verified 05/05/18 11:03 MYCINS Allergy Intermediate Uncoded 05/05/18 11:03 Home Medications: Ambulatory Orders Aspirin [ASA -] 81 mg PO DAILY 02/13/16 Atorvastatin Ca [Lipitor] 10 mg PO HS 02/13/16 Carbidopa/Levodopa [Carbidopa-Levodopa 25-100 Tab] 2 each PO TID 02/13/16 Fosinopril Sodium [Fosinopril Sodium -] 20 mg PO DAILY 02/13/16 Carbidopa/Levodopa [Carbidopa-Levodopa 25-100 Tab] 1 mg PO HS PRN 05/05/18 Anemia: No Asthma: No Cancer: No Cardiac Disorders: No CVA: No COPD: No CHF: No Dementia: No Diabetes: No GI Disorders: No Disorders: No HTN: Yes Hypercholesterolemia: No Liver Disease: No Seizures: No Thyroid Disease: Yes (parkinsons,) - Surgical History Abdominal Surgery: Yes (gb 26 yrs ago) Appendectomy: No Cardiac Surgery: No Cholecystectomy: Yes Lung Surgery: No Neurologic Surgery: No (2008) Orthopedic Surgery: No - Suicide/Smoking/Psychosocial Hx Smoking History: Never smoked Have you smoked in the past 12 months: No If you are a former smoker, when did you quit?: 45 years ago Information on smoking cessation initiated: No Hx Alcohol Use: No Drug/Substance Use Hx: No Substance Use Type: None Hx Substance Use Treatment: No *Physical Exam - Vital Signs Last Vital Signs Temp Pulse Resp BP Pulse Ox 98.8 F 94 H 20 138/84 12/20/18 17:52 12/20/18 17:52 12/20/18 17:52 12/20/18 17:52 ED Treatment Course - LABORATORY CBC & Chemistry Diagram: 12/20/18 18:59 12/20/18 18:59 - ADDITIONAL ORDERS Additional order review: Laboratory Results 12/20/18 12/20/18 18:59 18:59 PT with INR 12.00 INR 1.02 Sodium 137 Potassium 4.1 Chloride 102 Carbon Dioxide 28 Anion Gap 7 L BUN 14.8 Creatinine 0.7 Est GFR (CKD-EPI)AfAm 94.84 Est GFR (CKD-EPI)NonAf 81.83 Random Glucose 91 Calcium 9.0 Magnesium 2.2 Total Bilirubin 0.5 AST 15 ALT 8 L Alkaline Phosphatase 90 Creatine Kinase 55 Troponin I < 0.02 B-Natriuretic Peptide 290.3 Total Protein 6.7 Albumin 3.6 TSH 2.26 12/20/18 18:59 RBC 3.65 MCV 99.1 H MCHC 33.2 RDW 14.0 MPV 8.5 Neutrophils % 72.7 D Lymphocytes % 15.9 D Monocytes % 8.6 Eosinophils % 2.4 Basophils % 0.4 - RADIOLOGY Radiology Studies Ordered: Category Date Time Status CHEST X-RAY PORTABLE* [RAD] Stat Radiology 12/20/18 18:51 Taken - Medications Given in the ED: ED Medications Discontinued Medications Generic Name Dose Route Start Last Admin Trade Name Freq PRN Reason Stop Dose Admin Sodium Chloride 500 mls @ 500 mls/hr 12/20/18 18:51 12/20/18 19:14 Normal Saline - IV 12/20/18 19:50 500 mls/hr ASDIR STA Administration *DC/Admit/Observation/Transfer Diagnosis at time of Disposition: Weakness, Parkinson disease, HLD (hyperlipidemia) - Discharge Dispostion Disposition: HOME Decision to Admit order: No - Referrals Referrals: Daquan Saba MD [Primary Care Provider] - - Patient Instructions Printed Discharge Instructions: DI for Muscle Weakness Additional Instructions: You were seen in the emergency department for the evaluation of your weakness. Your labs are within normal limits., Your heart rhythm is unchanged from previous. Your chest xray was within normal limits. Please follow up with your primary medical doctor within 1 week after discharge. Please return to our department if you have worsening symptoms or new concerning symptoms. Thank you. - Post Discharge Activity
[2018-12-20] MEDS ORDERED: LISINOPRIL 5 MG TABLET (FP) PO ONE (21:05)
[2018-12-20 22:39] LABS: URINE APPEARANCE CLEAR; URINE BILIRUBIN NEGATIVE (NEGATIVE); URINE COLOR YELLOW; URINE GLUCOSE (UA) NEGATIVE (NEGATIVE); URINE KETONE NEGATIVE (NEGATIVE); URINE LEUK ESTERASE NEGATIVE (NEGATIVE); URINE NITRITE NEGATIVE (NEGATIVE); URINE PROTEIN NEGATIVE (NEGATIVE); URINE UROBILINOGEN 0.2 mg/dL (0.2-1.0)
--- NOTE | 2018-12-21 17:01 | EKG ---
Test Reason : Blood Pressure : / mmHG Vent. Rate : 070 BPM Atrial Rate : 070 BPM P-R Int : 154 ms QRS Dur : 072 ms QT Int : 388 ms P-R-T Axes : 000 -17 001 degrees QTc Int : 419 ms NORMAL SINUS RHYTHM NORMAL ECG Confirmed by MD SALGADO MOYSES ([id number]) on 12/21/2018 5:01:08 PM Referred By: Confirmed By:JAMES SALGADO MD
== END 2018-12-20 23:54 | disposition home or self-care (01) ==
LOC: JER 17:39
PROC: 3E0337Z Introduction of Electrolytic and Water Balance Substance into Peripheral Vein, Percutaneous Approach (ICD-10-PCS; principal; 2018-12-20)
DX: R53.1 Weakness (principal); I10 Essential (primary) hypertension; E78.5 Hyperlipidemia, unspecified; G20 Parkinson's disease
CPT/HCPCS: 36415; 71045-TC-FY; 80053; 81003; 82550; 83735; 83880; 84443; 84484; 85025; 85610; 87086; 93005; 93010; 96360; 99282-25

== ENCOUNTER 2019-05-03 13:26 | Inpatient (IN) | payer OTHER, MEDICARE ==
--- NOTE | 2019-05-03 13:43 | PDOC ---
History of Present Illness - General Stated Complaint: FALL Time Seen by Provider: 05/03/19 13:39 - History of Present Illness Initial Comments: 05/03/19 14:16 Pt is an 79y/o female with HTN, HLD, Parkinson's, and breast cancer s/p radiation 5 years ago who presents following a developer prover mechanical fall. The pt has difficulty ambulating with a walker currently, and pt's daughter reports she has gradually been declining in functional status over the last several months. She has a [employer] 9-5 M-F, and her cares for her during the weekend. She was trying to get out of bed with his assistance today and feel on the floor on her knees. The daughter was called to the house and was able to help her in the bed and EMS was called. She reports right knee tenderness. She denies feeling ill recently, headache, dizziness, loss of appetite, chest pain, dysuria, or increase in weakness. Past History - Past Medical History Allergies/Adverse Reactions: Allergies Allergy/AdvReac Type Severity Reaction Status Date / Time iodine [Iodine] Allergy Intermediate Hives Verified 05/03/19 16:52 meperidine HCl [From Demerol] Allergy Intermediate Verified 05/03/19 16:52 morphine Allergy Intermediate Verified 05/03/19 16:52 chocolate flavor Allergy Verified 05/03/19 16:52 Penicillins Allergy Verified 05/03/19 16:52 MYCINS Allergy Intermediate Uncoded 05/03/19 16:52 Home Medications: Ambulatory Orders Aspirin [ASA -] 81 mg PO DAILY 02/13/16 Atorvastatin Ca [Lipitor] 10 mg PO HS 02/13/16 Carbidopa/Levodopa [Carbidopa-Levodopa 25-100 Tab] 50 - 200 each PO TID Fosinopril Sodium [Fosinopril Sodium -] 20 mg PO DAILY 02/13/16 Anemia: No Asthma: No Cancer: No Cardiac Disorders: No CVA: No COPD: No CHF: No Dementia: No Diabetes: No HTN: Yes Hypercholesterolemia: Yes Liver Disease: No Seizures: No Other medical history: Parkinson's - Surgical History Abdominal Surgery: Yes (gb 26 yrs ago) Appendectomy: No Cardiac Surgery: No Cholecystectomy: Yes Lung Surgery: No Neurologic Surgery: No (2008) Orthopedic Surgery: No - Psycho Social/Smoking Cessation Hx Smoking History: Never smoked Have you smoked in the past 12 months: No If you are a former smoker, when did you quit?: 45 years ago Hx Alcohol Use: No Drug/Substance Use Hx: No Substance Use Type: None Hx Substance Use Treatment: No Review of Systems - Review of Systems Constitutional: No: Chills, Fever Respiratory: No: Shortness of Breath Cardiac (ROS): No: Chest Pain ABD/GI: No: Nausea : No: Dysuria Musculoskeletal: Yes: Joint Pain Neurological: No: Headache, Dizziness *Physical Exam - Physical Exam General Appearance: Yes: Nourished, Appropriately Dressed. No: Apparent Distress HEENT: positive: EOMI, SAIRA Neck: positive: Trachea midline Respiratory/Chest: positive: Lungs Clear Cardiovascular: positive: Regular Rhythm, Regular Rate. negative: Murmur Gastrointestinal/Abdominal: positive: Normal Bowel Sounds. negative: Tender Integumentary: positive: Other (b/l knee erythema/abrasions no bleeding; chronic erythematous plaque rash on face) Neurologic: positive: Alert, Normal Mood/Affect, Other (able to flex at hips, flex and extend at knees and feet 4/5; industrial coffee grinder strength 5/5; left UE tremor) ED Treatment Course - LABORATORY CBC & Chemistry Diagram: 05/03/19 14:30 05/03/19 14:30 Medical Decision Making - Medical Decision Making 05/03/19 14:35 Pt is an 79y/o female with HTN, HLD, Parkinson's, and breast cancer s/p radiation 5 years ago who presents following a developer prover mechanical fall. The pt has difficulty ambulating with a walker currently, and pt's daughter reports she has gradually been declining in functional status over the last several months. ddx: mechanical fall, UTI, failure to thrive, inability to ambulate orders: CBC, CMP, EKG, UA, urine cx, troponin, b/l knee x-rays, CT head 05/03/19 14:43 EKG- NSR HR 72, no acute ST changes, QTc 440 05/03/19 15:20 WBC 10.8, afebrile, UA negative 05/03/19 16:09 Will admit to [facility]. Discharge - Discharge Information Problems reviewed: Yes Clinical Impression/Diagnosis: Fall Qualifiers: Encounter type: initial encounter Qualified Code(s): W19.XXXA - Unspecified fall, initial encounter - Admission Yes - Follow up/Referral - Patient Discharge Instructions - Post Discharge Activity
[2019-05-03 13:57] VITALS: BMI 27.4
[2019-05-03 14:37] LABS: BASO % 0.3 % (0-2.0); EOS % 0.6 % (0-4.5); HEMATOCRIT 37.1 % (32.4-45.2); HEMOGLOBIN 12.5 GM/dL (10.7-15.3); LYMPH % 12.5 % (8-40); MCHC 33.7 g/dl (32.0-36.0); MEAN CELL VOLUME 97.9 fl (80-96); MEAN PLT VOLUME 8.1 fl (7.5-11.1); MONO % 6.5 % (3.8-10.2); NEUT % 80.1 % (42.8-82.8); PLATELET COUNT 227 K/MM3 (134-434); RDW 13.4 % (11.6-15.6); WHITE BLOOD COUNT 10.8 K/mm3 (4.0-10.0)
[2019-05-03 15:02] LABS: URINE APPEARANCE Clear; URINE BILIRUBIN Negative (NEGATIVE); URINE COLOR Yellow; URINE GLUCOSE (UA) Negative (NEGATIVE); URINE KETONE Negative (NEGATIVE); URINE LEUK ESTERASE Negative (NEGATIVE); URINE NITRITE Negative (NEGATIVE); URINE PROTEIN Negative (NEGATIVE); URINE UROBILINOGEN 0.2 mg/dL (0.2-1.0)
[2019-05-03 15:07] LABS: ALBUMIN 3.7 g/dl (3.4-5.0); ALK PHOS 71 U/L (45-117); ANION GAP 7 MMOL/L (8-16); BILIRUBIN,TOTAL 0.4 mg/dL (0.2-1); BLOOD UREA NITROGEN 13.3 mg/dL (7-18); CALCIUM 9.7 mg/dL (8.5-10.1); CHLORIDE 103 mmol/L (98-107); CO2 28 mmol/L (21-32); CREATININE 0.7 mg/dL (0.55-1.3); GLUCOSE,RANDOM 89 mg/dL (74-106); POTASSIUM 4.2 mmol/L (3.5-5.1); SGOT/AST 21 U/L (15-37); SGPT/ALT 9 U/L (13-61); SODIUM 137 mmol/L (136-145); TOT PROT 6.9 g/dl (6.4-8.2)
--- NOTE | 2019-05-03 15:14 | PDOC ---
Documentation entered by Deon Weinstein SCRIBE, acting as scribe for Peggy Kwok DO. Peggy Kwok DO: This documentation has been prepared by the Js goldsmith Nirvannie, SCRIBE, under my direction and personally reviewed by me in its entirety. I confirm that the documentation accurately reflects all work, treatment, procedures, and medical decision making performed by me. Attending Attestation - Resident Resident Name: Rosy Quintanilla - ED Attending Attestation I have performed the following: I have examined & evaluated the patient, The case was reviewed & discussed with the resident, I agree w/resident's findings & plan, Exceptions are as noted - HPI HPI: 05/03/19 14:36 The patient is an 79 year old female, with a significant past medical history of HTN, Parkinsons disease, left breast ca (s/p lumpectomy and radiation), and arthritis, who presents to the emergency department s/p mechanical fall. As per patients daughter at bedside, the patient has a home health aide Saturday to Saturday 9-5 and on weekends her elderly tends to her. She notes the patient was attempting to come out of bed with the assistance of her at which time she fell out of bed onto her knees. Patient could not get back into bed until the arrival of her daughter. She endorses bilateral knee pain, prompting her arrival to the ED. Family denies any LOC, acute change in strength/sensation, or dizziness.She denies recent chest pain or shortness of breath. She denies recent dysuria, frequency, urgency or hematuria. Allergies: Iodine, Meperidine HCl, Morphine, Penicillins (hives), Mycins Primary Care Physician: Dr. Saba - Physicial Exam PE: 05/03/19 15:05 Constitutional: Awake, alert, oriented. No acute distress. Head: Normocephalic. Atraumatic Eyes: PERRL. EOMI. Conjunctivae are not pale. ENT: Mucous membranes are moist and intact. Posterior pharynx without exudates or erythema. Uvula midline. Neck: Supple. Full ROM. No lymphadenopathy. Cardiovascular: Regular rate. Regular rhythm. S1, S2 regular. Distal pulses are 2+ and symmetric. Pulmonary/Chest: No evidence of respiratory distress. Clear to auscultation bilaterally No wheezing, rales or rhonchi. Abdominal: Soft and non-distended. There is no tenderness. No rebound, guarding or rigidity. No organomegaly. No palpable masses. Good bowel sounds. Back: No CVA tenderness. Musculoskeletal: No edema. No cyanosis. No clubbing. Full range of motion in all extremities. No calf tenderness. Radial/pedal pulses are intact and 2+ bilaterally Skin: Skin is warm and dry. No petechiae. No purpura. Neurological: Strength is 4/5 to the bilateral upper and lower extremities. Diffuse weakness to the extremities. Alert and oriented to person, place, and time. Cranial nerves II-XII are grossly intact. Normal speech. No sensory deficits. Psychiatric: Good eye contact. Normal interaction, affect and behavior. - Medical Decision Making 05/03/19 15:10 a/p: 79yo female with hx of parkinsons disease with a fall this AM -during the week 9-5 pt has a home health aide, but at night and on the weekends the patient is cared for by her elderly -per the daughter, pt requires more care than can be provided at home -daughter states her mother needs rehab and placement -pt states she feels generally weak all over but can ranger her joints -banged her knees when she fell and was unble to get up, no hip pain or ttp -no back pain, no neck pain, no head injury, just becoming more weak -will send labs, ua, ekg, cxr -will monitor and reassess 05/03/19 15:14 no acute findings on labs imaging pending 05/03/19 15:50 knee xray shows old healed fibula fx microblog sent to [facility] for admission for inability to ambulate, falls, unsafe discharge plan 05/03/19 16:35 resident discussed the case with [facility] who accepts pt to service Heart Score/ECG Review - ECG Intrepretation Comment:: 05/03/19 15:13 sinus at 72, q waves inferior leads which are age indeterminate, no acute st/t wave findings
[2019-05-03] MEDS ORDERED: CARBIDOPA/LEVODOPA 25/100 TABLET (FP) ONE (16:32)
[2019-05-03] MEDS ORDERED: ACETAMINOPHEN 1000 MG/100 ML VIAL (NON FORMULARY) IVPB ONE (16:39)
[2019-05-03] MEDS ORDERED: ACETAMINOPHEN INJECTION 100 ML IVPB ONE (17:41)
--- NOTE | 2019-05-03 18:59 | HP ---
79 F h/o HTN, Parkinsons disease, left breast ca (s/p lumpectomy and radiation) , and arthritis, presents s/p fall after trying to get out of bed. Patient endorses trying to step on her stepper to get out of bed, when it slid underneath the bed she missed a step and fell on both knees. Had trouble getting back into bed until her daughter came and helped her. Patient denies hitting her head or chest, denies LOC, denies CP/SOB/dizziness/cough/chest pressure, urinary symptoms, N/V/D. Otherwise daughter endorses patient was in her usual state of health. Patients daughter endorses having great deal of difficulty taking care of her mother, and her father being he is 88 years old also having trouble caring for her, and is looking to place her in a longterm facility. Vital Signs - 24 hr 05/03/19 05/03/19 05/03/19 13:35 14:11 17:38 Temperature 97.4 F L 97.6 F Pulse Rate 76 Pulse Rate [ 76 Right Radial] Respiratory 18 20 Rate Blood Pressure 138/53 L Blood Pressure 142/62 [Right Arm] O2 Sat by Pulse 94 L 94 L Oximetry (%) 05/03/19 18:49 Temperature 97.4 F L Pulse Rate 64 Pulse Rate [ Right Radial] Respiratory 16 Rate Blood Pressure 138/60 Blood Pressure [Right Arm] O2 Sat by Pulse Oximetry (%) PE GA AAox3, speaking in full sentences, elderly female, lying in stretcher HEENT NC, R erythematous/swollen R side of face with R eye occlusion (patient and patients daughter endorsed she had for many years flares up and down), Neck supple but notable limited due to arthritis, MMM Chest CTAB, no crackles or wheezing CVS S1, S2+, SAVAGE+, RRR Abd Soft, NT, ND, BS+, no guarding Ext slightly contracted LE, mild area of erythema in both knees, good ROM in both knees but slightly limited due to arthritis, no patellar tenderness to palpation Laboratory Results - last 24 hr 05/03/19 05/03/19 05/03/19 14:30 14:30 14:30 WBC 10.8 H RBC 3.80 Hgb 12.5 Hct 37.1 MCV 97.9 H MCH 33.0 MCHC 33.7 RDW 13.4 Plt Count 227 MPV 8.1 Absolute Neuts (auto) 8.6 H Neutrophils % 80.1 Lymphocytes % 12.5 D Monocytes % 6.5 Eosinophils % 0.6 Basophils % 0.3 Nucleated RBC % 0 Sodium 137 Potassium 4.2 Chloride 103 Carbon Dioxide 28 Anion Gap 7 L BUN 13.3 Creatinine 0.7 Est GFR (CKD-EPI)AfAm 94.18 Est GFR (CKD-EPI)NonAf 81.26 Random Glucose 89 Calcium 9.7 Total Bilirubin 0.4 AST 21 ALT 9 L Alkaline Phosphatase 71 Creatine Kinase 145 Troponin I < 0.02 Total Protein 6.9 Albumin 3.7 Urine Color Yellow Urine Appearance Clear Urine pH 8.0 Ur Specific [place] 1.020 Urine Protein Negative Urine Glucose (UA) Negative Urine Ketones Negative Urine Blood Negative Urine Nitrite Negative Urine Bilirubin Negative Urine Urobilinogen 0.2 Ur Leukocyte Esterase Negative Home Medications Medication Instructions Recorded Aspirin [ASA -] 81 mg PO DAILY 02/13/16 Atorvastatin Ca [Lipitor] 10 mg PO HS 02/13/16 Carbidopa/Levodopa 50 - 200 each PO TID 02/13/16 [Carbidopa-Levodopa 25-100 Tab] Fosinopril Sodium [Fosinopril 20 mg PO DAILY 02/13/16 Sodium -] A/P: 79 F h/o Parkinsons, HTN, arthritis presents s/p mechanical fall when trying to ambulate out of bed, admitted for SNF placement and pain control. S/p mechanical fall Likely due to marked deconditioning from Parkinsons, daughter endorses having trouble to take care of her mother, needs further assistance with ADLs and IADL s, appears patient cannot care for herself, will consult for SNF placement. -Pain control with IV Tylenol as needed -Await official read for b/l knees, CT-head (d/t ?hitting of her head/poor historian) HTN Restart home BP meds as tolerated Arthritis Will need further PT evaluation for gait and transfer At baseline pt. requires assistance when ambulating, also uses rollator walker DVT ppx: Heparin SC No IVF, PO hydration, soft diet Admit to Med-surg Spoke to patients daughter about resuscitation, as per daughter, patient endorsed to her she does not want any chest compressions or breathing machine if her heart stops, will confirm with patient and apply DNR/DNI as needed. Visit type - Emergency Visit Emergency Visit: Yes ED Registration Date: 05/03/19 Care time: The patient presented to the Emergency Department on the above date and was hospitalized for further evaluation of their emergent condition. - New Patient This patient is new to me today: Yes Date on this admission: 05/03/19 - Critical Care Critical Care patient: No
[2019-05-03] MEDS: ATORVASTATIN CA 10 MG TABLET (FP) PO SCH (21:36)
[2019-05-03] MEDS: CARBIDOPA/LEVODOPA 25/100 TABLET (FP) PO SCH (21:36)
--- NOTE | 2019-05-04 07:25 | PN ---
Progress Note, Physician Chief Complaint: c/o weakness. Anxious about going to SNF History of Present Illness: 79 F h/o Parkinsons, HTN, arthritis presents s/p mechanical fall when trying to ambulate out of bed. Admitted for SNF placement and pain control. - Current Medication List Current Medications: Active Medications Atorvastatin Calcium (Lipitor -) 10 mg PO HS [facility] Last Admin: 05/03/19 21:36 Dose: 10 mg Carbidopa/Levodopa (Sinemet 25/100 -) 2 each PO TID@1030,1430,1930 [facility] Last Admin: 05/03/19 21:36 Dose: 2 each Lisinopril (Prinivil) 20 mg PO DAILY [facility] - Objective Vital Signs: Vital Signs Temperature 97.9 F 05/04/19 05:00 Pulse Rate 71 05/04/19 05:00 Respiratory Rate 16 05/04/19 05:00 Blood Pressure 159/66 05/04/19 05:00 O2 Sat by Pulse Oximetry (%) 98 05/03/19 22:37 Constitutional: Yes: Well Nourished, No Distress, Calm Eyes: Yes: WNL, Conjunctiva Clear HENT: Yes: WNL, Atraumatic, Normocephalic Neck: Yes: WNL, Supple, Trachea Midline Cardiovascular: Yes: WNL, Regular Rate and Rhythm Respiratory: Yes: WNL, Regular, CTA Bilaterally Gastrointestinal: Yes: WNL, Normal Bowel Sounds ...Rectal Exam: Yes: Deferred Genitourinary: Yes: WNL Breast(s): Yes: WNL Musculoskeletal: Yes: Joint Swelling (BL knee pain with eccymosis R>L) Extremities: Yes: WNL Edema: No Peripheral Pulses WNL: Yes Peripheral Pulses: Left Radial: 2+, Right Radial: 2+, Left Doralis Pedis: 2+, Right Dorsalis Pedis: 2+, Left Femoral: 2+, Right Femoral: 2+ Integumentary: Yes: Bruising (knees BL) Neurological: Yes: WNL, Alert, Oriented ...Motor Strength: LLE (generalized weakness), RLE Psychiatric: Yes: WNL Labs: CBC, BMP 05/03/19 14:30 05/03/19 14:30 - ....Imaging X-ray: Report Reviewed (Knee without acute findings) Cat Scan: Report Reviewed (HCT without acute findings) Problem List - Problems (1) Breast cancer, left breast Assessment/Plan: stable Code(s): C50.912 - MALIGNANT NEOPLASM OF UNSPECIFIED SITE OF LEFT FEMALE BREAST (2) Arthritis Assessment/Plan: c/o pain to BL knees R>L no acute findings in Xrays lidoderm patch to right knee Code(s): M19.90 - UNSPECIFIED OSTEOARTHRITIS, UNSPECIFIED SITE (3) Prophylactic measure Assessment/Plan: FEN Fluids: adequate PO intake Electrolytes: replete as indicated Nutrition: soft diet DVT prophylaxis: oob, ambulation with PT Dispo: continues to require inpatient care. Full code discharge planning to SNF Code(s): Z29.9 - ENCOUNTER FOR PROPHYLACTIC MEASURES, UNSPECIFIED (4) HLD (hyperlipidemia) Assessment/Plan: c/w lipitor Code(s): E78.5 - HYPERLIPIDEMIA, UNSPECIFIED (5) HTN (hypertension) Assessment/Plan: on lisinipril at home BP elevated since admission will increase lisinipril to 25mg Code(s): I10 - ESSENTIAL (PRIMARY) HYPERTENSION Qualifiers: Hypertension type: essential hypertension Qualified Code(s): I10 - Essential (primary) hypertension (6) Parkinson disease Assessment/Plan: c/w sinimet supportive care Code(s): G20 - PARKINSON'S DISEASE (7) Weakness Assessment/Plan: PT following discharge to SNF appreciate input Code(s): R53.1 - WEAKNESS (8) Near syncope Assessment/Plan: pt states she lost her footing when getting oob, no LOC HCT negative plan for SNF on discharge Code(s): R55 - SYNCOPE AND COLLAPSE Visit type - Emergency Visit Emergency Visit: Yes ED Registration Date: 05/03/19 Care time: The patient presented to the Emergency Department on the above date and was hospitalized for further evaluation of their emergent condition. - New Patient This patient is new to me today: Yes Date on this admission: 05/04/19 - Critical Care Critical Care patient: No - Discharge Referral Referred to [facility] Med P.C.: No
[2019-05-04] MEDS: CARBIDOPA/LEVODOPA 25/100 TABLET (FP) PO SCH ×4 (09:35→20:33)
[2019-05-04] MEDS ORDERED: LISINOPRIL 20 MG TABLET (FP) PO SCH (10:00)
--- NOTE | 2019-05-04 14:04 | EKG ---
Test Reason : Blood Pressure : / mmHG Vent. Rate : 072 BPM Atrial Rate : 072 BPM P-R Int : 142 ms QRS Dur : 090 ms QT Int : 402 ms P-R-T Axes : 033 -04 023 degrees QTc Int : 440 ms POOR DATA QUALITY, INTERPRETATION MAY BE ADVERSELY AFFECTED NORMAL SINUS RHYTHM NORMAL ECG WHEN COMPARED WITH ECG OF 20-DEC-2018 17:56, NO SIGNIFICANT CHANGE WAS FOUND Confirmed by Rancho Valdes ([id number]) on 05/04/2019 2:04:05 PM Referred By: Confirmed By:Rancho Valdes
[2019-05-04] MEDS: LIDOCAINE 5% TOPICAL PATCH TP SCH (15:08)
[2019-05-04] MEDS: ATORVASTATIN CA 10 MG TABLET (FP) PO SCH (21:23)
[2019-05-04] MEDS: LIDOCAINE PATCH REMOVAL MC SCH (21:27)
[2019-05-05] MEDS: LISINOPRIL 10 MG TABLET (FP) PO SCH (10:49)
[2019-05-05] MEDS: LIDOCAINE 5% TOPICAL PATCH TP SCH (10:49)
[2019-05-05] MEDS: CARBIDOPA/LEVODOPA 25/100 TABLET (FP) PO SCH ×3 (10:49→19:30)
--- NOTE | 2019-05-05 15:24 | PN ---
Physical Exam: SUBJECTIVE: Patient seen and examined. sitting up, tells me she feels fine, wishes she could walk more. OBJECTIVE: Patient is an 79 year old female with a significant past medical history of parkinsons disease, hypertension and arthritis. She also has an implanted deep brain stimulator for her parkinsons disease. Patient presents to the ED on 05/03 after a mechnical fall when attempting to ambulate. Vital Signs Period Temp Pulse Resp BP Sys/Hernandez Pulse Ox Last 24 Hr 97.6 F-98.6 F 68-74 18-20 127-175/51-80 94-98 GENERAL: The patient is awake, alert, speech is mumbled but appears to be alert and oriented x 3. HEAD: Normal with no signs of trauma. EYES: PERRL, extraocular movements intact, sclera anicteric, conjunctiva clear. No ptosis. ENT: Ears normal, nares patent, oropharynx clear without exudates NECK: Trachea midline, full range of motion, supple. LUNGS: Breath sounds equal, clear to auscultation bilaterally, no wheezes HEART: Regular rate and rhythm ABDOMEN: implanted stimulator on right upper abdomen. EXTREMITIES: 2+ pulses, warm, well-perfused, no edema. - foot drop NEUROLOGICAL: Normal speech, gait not observed. PSYCH: Normal mood, normal affect. SKIN: Warm, dry, normal turgor, no rashes or lesions noted Active Medications Generic Name Dose Route Start Last Admin Trade Name Freq PRN Reason Stop Dose Admin Atorvastatin Calcium 10 mg 05/03/19 22:00 05/04/19 21:23 Lipitor - PO 10 mg HS BRAYAN Administration Carbidopa/Levodopa 2 each 05/03/19 21:30 05/05/19 13:37 Sinemet 25/100 - PO 2 each TID@1030,1430,1930 BRAYAN Administration Lidocaine 1 patch 05/04/19 14:00 05/05/19 10:49 Lidoderm Patch - TP Not Given DAILY BRAYAN Lisinopril 25 mg 05/05/19 10:00 05/05/19 10:49 Prinivil PO 25 mg DAILY BRAYAN Administration Miscellaneous 1 each 05/04/19 22:00 05/04/19 21:27 Lidoderm Patch Removal MC Not Given DAILY@2200 BRAYAN ASSESSMENT/PLAN: Problem List - Problems (1) Weakness Assessment/Plan: for physical therapy s/p mechanical fall at home maintain safety Code(s): R53.1 - WEAKNESS (2) Parkinson disease Assessment/Plan: on sinemet soft diet, swallow eval in a.m. Code(s): G20 - PARKINSON'S DISEASE (3) Breast cancer, left breast Assessment/Plan: stable, outpatient follow up. Code(s): C50.912 - MALIGNANT NEOPLASM OF UNSPECIFIED SITE OF LEFT FEMALE BREAST (4) Fever Assessment/Plan: no fevers currently Code(s): R50.9 - FEVER, UNSPECIFIED Qualifiers: Encounter type: initial encounter (5) HLD (hyperlipidemia) Assessment/Plan: lipid panel in am. on lipitor Code(s): E78.5 - HYPERLIPIDEMIA, UNSPECIFIED (6) HTN (hypertension) Assessment/Plan: on lisonopril, monitor bp Code(s): I10 - ESSENTIAL (PRIMARY) HYPERTENSION Qualifiers: Hypertension type: essential hypertension Qualified Code(s): I10 - Essential (primary) hypertension (7) Near syncope Assessment/Plan: pt evaluation for SNF placement fall risk Code(s): R55 - SYNCOPE AND COLLAPSE (8) Pre-syncope Assessment/Plan: maintain safety Code(s): R55 - SYNCOPE AND COLLAPSE (9) Accident due to mechanical fall without injury Code(s): W19.XXXA - UNSPECIFIED FALL, INITIAL ENCOUNTER (10) Prophylactic measure Assessment/Plan: Fluids: adequate PO intake, monitor intake. Electrolytes: replete as indicated Nutrition: soft diet DVT prophylaxis: heparin bid Code(s): Z29.9 - ENCOUNTER FOR PROPHYLACTIC MEASURES, UNSPECIFIED Visit type - Emergency Visit Emergency Visit: Yes ED Registration Date: 05/03/19 Care time: The patient presented to the Emergency Department on the above date and was hospitalized for further evaluation of their emergent condition. - New Patient This patient is new to me today: No - Critical Care Critical Care patient: No - Discharge Referral Referred to [facility] Med P.C.: No
[2019-05-05] MEDS: DOCUSATE SODIUM 100 MG CAPSULE (FP) PO SCH (22:02)
[2019-05-05] MEDS: ATORVASTATIN CA 10 MG TABLET (FP) PO SCH (22:03)
[2019-05-05] MEDS: HEPARIN NA (PORCINE) 5,000 UNITS/ML 1ML VIAL SQ SCH (22:09)
[2019-05-05] MEDS: LIDOCAINE PATCH REMOVAL MC SCH (22:09)
[2019-05-06] MEDS: DOCUSATE SODIUM 100 MG CAPSULE (FP) PO SCH ×2 (06:21→14:49)
--- NOTE | 2019-05-06 07:56 | DS ---
Physical Exam: SUBJECTIVE: Patient seen and examined 79 F h/o Parkinsons, HTN, arthritis presents s/p mechanical fall when trying to ambulate out of bed. Mediclaly stable for discharge to SNF. OBJECTIVE: Vital Signs Period Temp Pulse Resp BP Sys/Hernandez Pulse Ox Last 24 Hr 97.4 F-98.6 F 60-71 18-20 127-175/58-73 95-98 PHYSICAL EXAM Constitutional: Yes: Well Nourished, No Distress, Calm Eyes: Yes: WNL, Conjunctiva Clear HENT: Yes: WNL, Atraumatic, Normocephalic Neck: Yes: WNL, Supple, Trachea Midline Cardiovascular: Yes: WNL, Regular Rate and Rhythm Respiratory: Yes: WNL, Regular, CTA Bilaterally Gastrointestinal: Yes: WNL, Normal Bowel Sounds ...Rectal Exam: Yes: Deferred Genitourinary: Yes: WNL Breast(s): Yes: WNL Musculoskeletal: Yes: Joint Swelling (BL knee pain with eccymosis R>L) Extremities: Yes: WNL Edema: No Peripheral Pulses WNL: Yes Peripheral Pulses: Left Radial: 2+, Right Radial: 2+, Left Doralis Pedis: 2+, Right Dorsalis Pedis: 2+, Left Femoral: 2+, Right Femoral: 2+ Integumentary: Yes: Bruising (knees BL) Neurological: Yes: WNL, Alert, Oriented ...Motor Strength: LLE (generalized weakness), RLE Psychiatric: Yes: WNL X-ray: Report Reviewed (Knee without acute findings) Cat Scan: Report Reviewed (HCT without acute findings) HOSPITAL COURSE: Date of Admission:05/03/19 Date of Discharge: 05/06/19 Problem List - Problems (1) Breast cancer, left breast Assessment/Plan: stable Code(s): C50.912 - MALIGNANT NEOPLASM OF UNSPECIFIED SITE OF LEFT FEMALE BREAST (2) Arthritis Assessment/Plan: c/o pain to BL knees R>L no acute findings in Xrays lidoderm patch to right knee Code(s): M19.90 - UNSPECIFIED OSTEOARTHRITIS, UNSPECIFIED SITE (3) Prophylactic measure Assessment/Plan: FEN Fluids: adequate PO intake Electrolytes: replete as indicated Nutrition: soft diet DVT prophylaxis: oob, ambulation with PT Dispo: continues to require inpatient care. Full code discharge planning to SNF Code(s): Z29.9 - ENCOUNTER FOR PROPHYLACTIC MEASURES, UNSPECIFIED (4) HLD (hyperlipidemia) Assessment/Plan: c/w lipitor Code(s): E78.5 - HYPERLIPIDEMIA, UNSPECIFIED (5) HTN (hypertension) Assessment/Plan: on lisinipril at home BP elevated since admission will increase lisinipril to 25mg Code(s): I10 - ESSENTIAL (PRIMARY) HYPERTENSION Qualifiers: Hypertension type: essential hypertension Qualified Code(s): I10 - Essential (primary) hypertension (6) Parkinson disease Assessment/Plan: c/w sinimet supportive care Code(s): G20 - PARKINSON'S DISEASE (7) Weakness Assessment/Plan: PT following discharge to SNF appreciate SW input Code(s): R53.1 - WEAKNESS (8) Near syncope Assessment/Plan: pt states she lost her footing when getting oob, no LOC HCT negative plan for SNF on discharge Code(s): R55 - SYNCOPE AND COLLAPSE Minutes to complete discharge: 35 Discharge Summary Problems reviewed: Yes Reason For Visit: WEAKNESS Current Active Problems Accident due to mechanical fall without injury (Acute) Arthritis (Acute) Breast cancer, left breast (Acute) Fall (Acute) Prophylactic measure (Acute) Hospital Course: HOSPITAL COURSE: Date of Admission:05/03/19 Date of Discharge: 05/06/19 Problem List - Problems (1) Breast cancer, left breast Assessment/Plan: stable Code(s): C50.912 - MALIGNANT NEOPLASM OF UNSPECIFIED SITE OF LEFT FEMALE BREAST (2) Arthritis Assessment/Plan: c/o pain to BL knees R>L no acute findings in Xrays lidoderm patch to right knee Code(s): M19.90 - UNSPECIFIED OSTEOARTHRITIS, UNSPECIFIED SITE (3) Prophylactic measure Assessment/Plan: FEN Fluids: adequate PO intake Electrolytes: replete as indicated Nutrition: soft diet DVT prophylaxis: oob, ambulation with PT Dispo: continues to require inpatient care. Full code discharge planning to SNF Code(s): Z29.9 - ENCOUNTER FOR PROPHYLACTIC MEASURES, UNSPECIFIED (4) HLD (hyperlipidemia) Assessment/Plan: c/w lipitor Code(s): E78.5 - HYPERLIPIDEMIA, UNSPECIFIED (5) HTN (hypertension) Assessment/Plan: on lisinipril at home BP elevated since admission will increase lisinipril to 25mg Code(s): I10 - ESSENTIAL (PRIMARY) HYPERTENSION Qualifiers: Hypertension type: essential hypertension Qualified Code(s): I10 - Essential (primary) hypertension (6) Parkinson disease Assessment/Plan: c/w sinimet supportive care Code(s): G20 - PARKINSON'S DISEASE (7) Weakness Assessment/Plan: PT following discharge to SNF appreciate input Code(s): R53.1 - WEAKNESS (8) Near syncope Assessment/Plan: pt states she lost her footing when getting oob, no LOC HCT negative plan for SNF on discharge Code(s): R55 - SYNCOPE AND COLLAPSE Condition: Improved - Instructions Diet, Activity, Other Instructions: DISCHARGE YOUR VISIT You came to the hospital because you fell at home. All your Xrays and Ct Scans were all negative. MEDICATIONS Please continue to take your home medications as prescribed. There was some changes: Lisinipril (blood pressure) was increased to 25mg Lidoderm patch to knee for pain DIET Continue your home diet. Low fat low cholesterol ADDITIONAL CARE Please make an appointment to see your primary care provider, Dr Saba 1 week after you are discharged from Rehab ADDITIONAL INFORMATION Please call 911 or come directly to the emergency department if you experience unusual headache, vision change, shortness of breath, chest pain, numbness, tingling, loss of alertness/awareness, loss of function, unusual bleeding or any alarming symptoms. Thank you for allowing me to care for you. Rodrigo Arriola, ACNP, DNP [facility] Referrals: Daquan Saba MD [Primary Care Provider] - Disposition: [facility] FACILITY - Home Medications Comprehensive Discharge Medication List: Ambulatory Orders Aspirin [ASA -] 81 mg PO DAILY 02/13/16 Atorvastatin Ca [Lipitor] 10 mg PO HS 02/13/16 Carbidopa/Levodopa [Carbidopa-Levodopa 25-100 Tab] 50 - 200 each PO TID Fosinopril Sodium [Fosinopril Sodium -] 20 mg PO DAILY 02/13/16 Prescription Drug Monitoring Program (I-STOP) results: I-STOP not reviewed Problem List - Problems (1) Breast cancer, left breast Code(s): C50.912 - MALIGNANT NEOPLASM OF UNSPECIFIED SITE OF LEFT FEMALE BREAST (2) Arthritis Code(s): M19.90 - UNSPECIFIED OSTEOARTHRITIS, UNSPECIFIED SITE (3) Prophylactic measure Code(s): Z29.9 - ENCOUNTER FOR PROPHYLACTIC MEASURES, UNSPECIFIED (4) HLD (hyperlipidemia) Code(s): E78.5 - HYPERLIPIDEMIA, UNSPECIFIED (5) HTN (hypertension) Code(s): I10 - ESSENTIAL (PRIMARY) HYPERTENSION Qualifiers: Hypertension type: essential hypertension Qualified Code(s): I10 - Essential (primary) hypertension (6) Parkinson disease Code(s): G20 - PARKINSON'S DISEASE (7) Weakness Code(s): R53.1 - WEAKNESS (8) Near syncope Code(s): R55 - SYNCOPE AND COLLAPSE This patient is new to me today: No Emergency Visit: Yes ED Registration Date: 05/03/19 Care time: The patient presented to the Emergency Department on the above date and was hospitalized for further evaluation of their emergent condition. Critical Care patient: No - Discharge Referral Referred to [facility] No
[2019-05-06 08:53] LABS: BASO % 0.5 % (0-2.0); EOS % 5.2 % (0-4.5); HEMATOCRIT 37.6 % (32.4-45.2); HEMOGLOBIN 12.7 GM/dL (10.7-15.3); LYMPH % 21.4 % (8-40); MCH 33.3 pg (25.7-33.7); MCHC 33.7 g/dl (32.0-36.0); MEAN CELL VOLUME 98.8 fl (80-96); MEAN PLT VOLUME 8.7 fl (7.5-11.1); MONO % 9.5 % (3.8-10.2); NEUT % 63.4 % (42.8-82.8); PLATELET COUNT 209 K/MM3 (134-434); RDW 13.8 % (11.6-15.6); WHITE BLOOD COUNT 8.8 K/mm3 (4.0-10.0)
[2019-05-06 09:12] LABS: ALBUMIN 3.2 g/dl (3.4-5.0); BILIRUBIN,TOTAL 0.7 mg/dL (0.2-1); BLOOD UREA NITROGEN 12.6 mg/dL (7-18); CALCIUM 8.8 mg/dL (8.5-10.1); CREATININE 0.6 mg/dL (0.55-1.3); MAGNESIUM 2.2 mg/dL (1.8-2.4); POTASSIUM 3.9 mmol/L (3.5-5.1); TOT PROT 6.3 g/dl (6.4-8.2)
[2019-05-06] MEDS ORDERED: PT OWN MED DRAWER 7, Y5N ONE (09:27)
[2019-05-06] MEDS: LISINOPRIL 10 MG TABLET (FP) PO SCH (09:52)
[2019-05-06] MEDS: LIDOCAINE 5% TOPICAL PATCH TP SCH (09:52)
[2019-05-06] MEDS: HEPARIN NA (PORCINE) 5,000 UNITS/ML 1ML VIAL SQ SCH (09:52)
[2019-05-06] MEDS ORDERED: POLYETHYLENE GLYCOL 3350 119 GM BTL PO SCH (10:00)
[2019-05-06] MEDS: CARBIDOPA/LEVODOPA 25/100 TABLET (FP) PO SCH ×2 (10:08→14:48)
--- NOTE | 2019-05-06 12:39 | CONSULT ---
Admitting History and Physical - Primary Care Physician PCP: Rodrigo Crocker - Admission History of Present Illness: Patient is an 79 year old female with a significant past medical history of parkinsons disease, hypertension and arthritis. She also has an implanted deep brain stimulator for her parkinsons disease. Patient presents to the ED on 05/03 after a mechnical fall when attempting to ambulate. History Source: Patient - Past Medical History [employer]: Yes: Parkinson's (s/p deep brain stimulator) Cardiovascular: Yes: HTN, Hyperlipdemia ...: No Heme/Onc: Yes: Cancer (lerft breast ca s/p lumpectomy, xrt) Musculoskeletal: Yes: Osteoarthritis, Other (scoliosis, cervical stenosis) - Past Surgical History Past Surgical History: Yes: Breast Biopsy, Cataract Removal, Cholecystectomy, Hysterectomy - Smoking History Smoking history: Former smoker Have you smoked in the past 12 months: No If you are a former smoker, when did you quit?: 45 years ago - Alcohol/Substance Use Hx Alcohol Use: No History of Substance Use: reports: None - Social History ADL: Family Assistance History of Recent Travel: No History - Admission Reason For Visit: WEAKNESS - Diagnostics CT Scan: Report Reviewed - General Mental Status: Alert and Oriented, Awake and Alert, Able to Follow Commands Attention: Intact Ability to Follow Directions: Excellent - Hearing Hearing: Normal Hearing Aide: No With Patient: No Speech Evaluation - Communication Primary Language: LATVIAN Communication: Yes: Dysarthria Oral Expression Ability: Yes: Mild Impairment - Speech Production Dysarthria: Yes: Hypokinetic Intelligibility: Yes: Mildly Impaired - Speech Characteristics Voice Loudness: Mildly Soft/Quiet Voice Pitch: Yes: Normal Voice Phonatory-based Quality: Yes: Hoarse, Dysphonia Speech Pattern: Impaired Speech Clarity: < 100% Nasal Resonance: Normal Articulation: Yes: Precise Rate of Speech: Intact - Language/Auditory Comprehension Follows: Yes: 2 Stage Simple Commands - Language/Verbal Expression Able to Respond to Simple Queries: Yes: WNL Able to Communicate Wants and Needs: Yes: WNL Functional Communication Status: Yes: WNL - Swallow Evaluation/Bedside Assessment Current Nutritional Intake: Regular, Thin Liquids Oral Secretions: Yes: WFL Dentition: Yes: Adequate Facial Symmetry at Rest: Symmetrical Facial Symmetry on Retraction: Symmetrical Facial Movement: Controlled Sensation: Normal Against Resistance Opening: Normal Against Resistance Closing: Normal Pucker Lips: Normal Smile: Normal Lingual Movement: Normal, Symmetric Lingual Speed of Movement: Normal Lingual Movement Strgth Against Opposition: Normal Lingual Movement Characteristics: Normal Velopharyngeal Movement: Normal Laryngeal Elevation: WFL Laryngeal Movement: Able to Palpate Rate of Intake: WFL Bolus Size: WFL Labial Seal: WFL Chewing: WFL Oral Prep Time: WFL A-P Transit: WFL Pocketing: None Timing of Swallow: WFL Coughing/Throat Clear: No Change in Voice: No Recommendations - Speech Evaluation, Impression/Plan Impression: Swallowing overtly intact. Dysphonia. Reduced speech volume. - Dysphagia Impressions/Plan Swallowing Skills: WFL Dysphagia Impressions: No Impairment *Silent aspiration: cannot be R/O at bedside Recommendations: ENT Consult (as o9ut pt to visualize vocal cords), Other (LSVT/ Voice tx- Pt unsure if she wants it) - Recommendations Diet Consistency: Regular Medication Administration: Whole with water Liquids: Thin Liquids
[2019-05-06 15:44] VITALS: BP 125/62; PULSE 64; TEMP 99
== END 2019-05-06 16:16 | DRG 57 ==
LOC: JER 13:26 → J4S 16:21 → J5S 05-05 19:29
PROVIDERS: ATTEND Nurse Practitioner Acute Care
DX: G20 Parkinson's disease (principal); R55 Syncope and collapse; I10 Essential (primary) hypertension; Z85.3 Personal history of malignant neoplasm of breast; Z88.0 Allergy status to penicillin; W19.XXXA Unspecified fall, initial encounter; Y93.89 Activity, other specified; Y92.009 Unspecified place in unspecified non-institutional (private) residence as the place of occurrence of the external cause; Y99.9 Unspecified external cause status; E78.5 Hyperlipidemia, unspecified
CPT/HCPCS: 36415; 70450-TC; 73562-TC-LT-FY; 73562-TC-RT-FY; 80053; 80061; 81003; 82550; 82553; 83721; 83735; 84484; 85025; 87086; 93005; 93010; 97116-GP; 97161-GP; 99283-25; J0131; J1644

== ENCOUNTER 2020-10-17 13:23 | Inpatient (IN) | payer OTHER, MEDICARE ==
[2020-10-17 13:44] VITALS: BMI 24.4
[2020-10-17] MEDS ORDERED: CARBIDOPA/LEVODOPA 25/100 TABLET (FP) PO ONE (13:59)
[2020-10-17] MEDS ORDERED: CARBIDOPA/LEVODOPA 25/100 TABLET (FP) ONE ×2 (14:06→18:42)
[2020-10-17 14:55] LABS: BASO % 0.3 % (0-2.0); EOS % 1.3 % (0-4.5); HEMATOCRIT 36.9 % (32.4-45.2); HEMOGLOBIN 12.4 GM/dL (10.7-15.3); LYMPH % 12.9 % (8-40); MCH 32.7 pg (25.7-33.7); MCHC 33.4 g/dl (32.0-36.0); MEAN CELL VOLUME 97.9 fl (80-96); MEAN PLT VOLUME 8.6 fl (7.5-11.1); MONO % 6.2 % (3.8-10.2); NEUT % 79.3 % (42.8-82.8); PLATELET COUNT 245 10^3/uL (134-434); RBC 3.77 M/mm3 (3.60-5.2); RDW 14.3 % (11.6-15.6); WHITE BLOOD COUNT 9.5 K/mm3 (4.0-10.0)
[2020-10-17 15:13] LABS: CHLORIDE 104 mmol/L (98-107); SODIUM 138 mmol/L (136-145)
[2020-10-17 15:15] LABS: CALCIUM 8.9 mg/dL (8.5-10.1); GLUCOSE,RANDOM 101 mg/dL (74-106)
[2020-10-17 15:16] LABS: ALBUMIN 3.6 g/dl (3.4-5.0); ANION GAP 9 MMOL/L (8-16); BLOOD UREA NITROGEN 15.3 mg/dL (7-18); CO2 24 mmol/L (21-32)
[2020-10-17 15:18] LABS: CREATININE 0.8 mg/dL (0.55-1.3)
[2020-10-17 15:19] LABS: SGOT/AST 26 U/L (15-37); SGPT/ALT 11 U/L (13-61)
[2020-10-17 15:20] LABS: BILIRUBIN,TOTAL 0.6 mg/dL (0.2-1)
[2020-10-17 15:21] LABS: ALK PHOS 62 U/L (45-117)
[2020-10-17 20:26] LABS: N-TERMINAL BNP 556.1 pg/ml (5-450)
[2020-10-17] MEDS: CARBIDOPA/LEVODOPA 25/100 TABLET (FP) PO SCH (21:59)
[2020-10-18 07:08] LABS: BASO % 0.6 % (0-2.0); EOS % 2.1 % (0-4.5); HEMATOCRIT 34.3 % (32.4-45.2); HEMOGLOBIN 11.7 GM/dL (10.7-15.3); LYMPH % 26.4 % (8-40); MCH 33.1 pg (25.7-33.7); MCHC 34.1 g/dl (32.0-36.0); MEAN PLT VOLUME 8.1 fl (7.5-11.1); NEUT % 63.9 % (42.8-82.8); PLATELET COUNT 232 10^3/uL (134-434); RBC 3.54 M/mm3 (3.60-5.2); RDW 14.1 % (11.6-15.6); WHITE BLOOD COUNT 8.4 K/mm3 (4.0-10.0)
[2020-10-18 07:32] LABS: ALBUMIN 3.3 g/dl (3.4-5.0); CALCIUM 8.3 mg/dL (8.5-10.1)
[2020-10-18 07:33] LABS: BLOOD UREA NITROGEN 10.2 mg/dL (7-18)
[2020-10-18 07:36] LABS: BILIRUBIN,TOTAL 0.6 mg/dL (0.2-1); CREATININE 0.6 mg/dL (0.55-1.3); PHOSPHOROUS 2.6 mg/dL (2.5-4.9); TOT PROT 6.3 g/dl (6.4-8.2)
[2020-10-18] MEDS: CARBIDOPA/LEVODOPA 25/100 TABLET (FP) PO SCH ×2 (09:47→14:03)
[2020-10-18] MEDS ORDERED: ENOXAPARIN NA (PORCINE) 40 MG/0.4 ML DISP.SYRIN SQ SCH (10:00)
[2020-10-18] MEDS ORDERED: LISINOPRIL 10 MG TABLET PO SCH (10:00)
[2020-10-18] MEDS ORDERED: ASPIRIN 81 MG CHEWABLE TABLETS PO SCH (10:00)
[2020-10-18] MEDS ORDERED: DOCUSATE SODIUM 100 MG CAPSULE (FP) PO SCH (14:00)
[2020-10-18 15:44] VITALS: BP 142/65; PULSE 68; TEMP 98.4
[2020-10-18] MEDS ORDERED: ATORVASTATIN CA 10 MG TABLET (FP) PO SCH (22:00)
== END 2020-10-18 16:49 | disposition home health service (06) | DRG 312 ==
LOC: JER 13:23 → JERBED 16:57 → OBSVTOIN 18:53 → J4S 19:13
PROVIDERS: ATTEND Nurse Practitioner Acute Care
DX: R55 Syncope and collapse (principal); I47.1 Supraventricular tachycardia; G20 Parkinson's disease; I10 Essential (primary) hypertension; F03.90 Unspecified dementia, unspecified severity, without behavioral disturbance, psychotic disturbance, mood disturbance, and anxiety; E78.5 Hyperlipidemia, unspecified; M48.02 Spinal stenosis, cervical region; M41.9 Scoliosis, unspecified; I65.29 Occlusion and stenosis of unspecified carotid artery; Z85.3 Personal history of malignant neoplasm of breast
CPT/HCPCS: 36415; 70450-TC; 71045-TC-FY; 80053; 82550; 83735; 83880; 84100; 84436; 84443; 84484; 85025; 93005; 93010; 99285-25; C9803; G0378; U0003; U0005

== ENCOUNTER 2022-08-06 16:57 | Observation (INO) | payer OTHER, MEDICARE ==
[2022-08-06] MEDS ORDERED: ACETAMINOPHEN 1000 MG/100 ML BAG IVPB ONE (19:15)
[2022-08-06] MEDS ORDERED: ACETAMINOPHEN INJECTION 100 ML IVPB ONE (19:18)
[2022-08-06 19:46] LABS: BASO % 0.3 % (0-2.0); EOS % 0.6 % (0-4.5); HEMATOCRIT 37.7 % (32.4-45.2); HEMOGLOBIN 12.6 GM/dL (10.7-15.3); LYMPH % 6.6 % (8-40); MCH 31.7 pg (25.7-33.7); MCHC 33.3 g/dl (32.0-36.0); MEAN CELL VOLUME 95.3 fl (80-96); MEAN PLT VOLUME 7.4 fl (7.5-11.1); MONO % 6.4 % (3.8-10.2); NEUT % 86.1 % (42.8-82.8); PLATELET COUNT 307 10^3/uL (134-434); RBC 3.95 M/mm3 (3.60-5.2); RDW 13.8 % (11.6-15.6); WHITE BLOOD COUNT 14.6 K/mm3 (4.0-10.0)
[2022-08-06 20:42] LABS: POTASSIUM 4.6 mmol/L (3.5-5.1)
[2022-08-06 20:43] LABS: ALBUMIN 3.7 g/dl (3.4-5.0); CALCIUM 9.4 mg/dL (8.5-10.1)
[2022-08-06 20:45] LABS: BLOOD UREA NITROGEN 13.7 mg/dL (7-18)
[2022-08-06 20:48] LABS: CREATININE 0.9 mg/dL (0.55-1.3)
[2022-08-06 20:49] LABS: BILIRUBIN,TOTAL 0.6 mg/dL (0.2-1); TOT PROT 7.4 g/dl (6.4-8.2)
[2022-08-06] MEDS ORDERED: morphine CARPU-JECT 4 MG/1 ML DISP.SYRIN IVPUSH ONE (22:05)
[2022-08-07] MEDS ORDERED: ACETAMINOPHEN 325 MG TABLET (FP) PO PRN (03:54)
[2022-08-07 04:01] LABS: PH,URINE 6.5 (5.0-8.0); URINE APPEARANCE CLEAR; URINE BILIRUBIN NEGATIVE (NEGATIVE); URINE COLOR YELLOW; URINE GLUCOSE (UA) NEGATIVE (NEGATIVE); URINE KETONE TRACE (NEGATIVE); URINE LEUK ESTERASE NEGATIVE (NEGATIVE); URINE NITRITE NEGATIVE (NEGATIVE); URINE PROTEIN NEGATIVE (NEGATIVE); URINE UROBILINOGEN 0.2 mg/dL (0.2-1.0)
[2022-08-07 05:43] VITALS: BMI 23.8
[2022-08-07] MEDS: DOCUSATE SODIUM 100 MG CAPSULE (FP) PO SCH ×3 (06:23→21:14)
[2022-08-07] MEDS ORDERED: ACETAMINOPHEN 325 MG TABLET (FP) PO SCH (06:45)
[2022-08-07 08:57] LABS: BASO % 0.5 % (0-2.0); EOS % 3.2 % (0-4.5); HEMATOCRIT 35.5 % (32.4-45.2); HEMOGLOBIN 12.3 GM/dL (10.7-15.3); LYMPH % 19.7 % (8-40); MCH 32.9 pg (25.7-33.7); MCHC 34.5 g/dl (32.0-36.0); MEAN CELL VOLUME 95.3 fl (80-96); MEAN PLT VOLUME 7.7 fl (7.5-11.1); MONO % 9.7 % (3.8-10.2); NEUT % 66.9 % (42.8-82.8); PLATELET COUNT 290 10^3/uL (134-434); RBC 3.72 M/mm3 (3.60-5.2); RDW 13.6 % (11.6-15.6)
[2022-08-07 09:15] LABS: POTASSIUM 4.3 mmol/L (3.5-5.1)
[2022-08-07 09:20] LABS: ALBUMIN 3.4 g/dl (3.4-5.0); BLOOD UREA NITROGEN 13.5 mg/dL (7-18); CALCIUM 9.3 mg/dL (8.5-10.1)
[2022-08-07 09:23] LABS: PHOSPHOROUS 3.2 mg/dL (2.5-4.9)
[2022-08-07 09:24] LABS: BILIRUBIN,TOTAL 0.6 mg/dL (0.2-1); CREATININE 0.8 mg/dL (0.55-1.3); TOT PROT 6.8 g/dl (6.4-8.2)
[2022-08-07] MEDS: ENOXAPARIN NA (PORCINE) 40 MG/0.4 ML DISP.SYRIN SQ SCH (09:40)
[2022-08-07] MEDS: ASPIRIN 81 MG CHEWABLE TABLETS PO SCH (09:40)
[2022-08-07] MEDS: CARBIDOPA/LEVODOPA 25/100 TABLET (FP) PO SCH ×4 (09:40→21:13)
[2022-08-07] MEDS: LISINOPRIL 10 MG TABLET PO SCH (09:40)
[2022-08-07] MEDS: LIDOCAINE 5% TOPICAL PATCH TP SCH (09:40)
[2022-08-07] MEDS: GABAPENTIN 100 MG CAPSULE PO SCH ×3 (09:40→21:16)
[2022-08-07] MEDS: ACETAMINOPHEN 325 MG TABLET (FP) PO SCH ×2 (13:06→18:07)
[2022-08-07] MEDS: traMADol HCL 50 MG TABLET PO PRN (21:14)
[2022-08-07] MEDS ORDERED: ATORVASTATIN CA 10 MG TABLET (FP) PO SCH (22:00)
[2022-08-07] MEDS ORDERED: LIDOCAINE PATCH REMOVAL MC SCH (22:00)
[2022-08-08] MEDS: DOCUSATE SODIUM 100 MG CAPSULE (FP) PO SCH ×2 (05:57→14:15)
[2022-08-08] MEDS: GABAPENTIN 100 MG CAPSULE PO SCH ×2 (05:57→14:15)
[2022-08-08] MEDS: ACETAMINOPHEN 325 MG TABLET (FP) PO SCH ×3 (05:58→12:11)
[2022-08-08] MEDS: ASPIRIN 81 MG CHEWABLE TABLETS PO SCH (10:04)
[2022-08-08] MEDS: LISINOPRIL 10 MG TABLET PO SCH (10:04)
[2022-08-08] MEDS: CARBIDOPA/LEVODOPA 25/100 TABLET (FP) PO SCH ×2 (10:04→14:16)
[2022-08-08] MEDS: LIDOCAINE 5% TOPICAL PATCH TP SCH (10:04)
[2022-08-08] MEDS: ENOXAPARIN NA (PORCINE) 40 MG/0.4 ML DISP.SYRIN SQ SCH (10:04)
[2022-08-08] MEDS: traMADol HCL 50 MG TABLET PO PRN (15:16)
[2022-08-08 15:46] VITALS: BP 104/51; PULSE 60; RESP 20; TEMP 98.2
== END 2022-08-08 16:45 ==
LOC: JER 16:57 → JERBED 08-07 03:42 → J8W 08-07 04:58
PROVIDERS: ADMIT Internal Medicine; ATTEND Nurse Practitioner Acute Care
PROC: 3E033NZ Introduction of Analgesics, Hypnotics, Sedatives into Peripheral Vein, Percutaneous Approach (ICD-10-PCS; principal; 2022-08-07)
PROC: 3E0333Z Introduction of Anti-inflammatory into Peripheral Vein, Percutaneous Approach (ICD-10-PCS; 2022-08-07)
PROC: 3E033GC Introduction of Other Therapeutic Substance into Peripheral Vein, Percutaneous Approach (ICD-10-PCS; 2022-08-07)
DX: G56.92 Unspecified mononeuropathy of left upper limb (principal); M79.2 Neuralgia and neuritis, unspecified; I10 Essential (primary) hypertension; E78.5 Hyperlipidemia, unspecified; G20 Parkinson's disease; D72.829 Elevated white blood cell count, unspecified; M19.012 Primary osteoarthritis, left shoulder; Z29.8 Encounter for other specified prophylactic measures; Z88.0 Allergy status to penicillin; Z88.1 Allergy status to other antibiotic agents; Z88.6 Allergy status to analgesic agent; Z91.048 Other nonmedicinal substance allergy status; Z85.3 Personal history of malignant neoplasm of breast; Z90.12 Acquired absence of left breast and nipple
CPT/HCPCS: 0241U-QW; 36415; 71045-TC-FY; 73030-TC-LT-FY; 73070-TC-LT-FY; 73090-TC-LT-FY; 73110-TC-LT-FY; 73130-TC-LT-FY; 73200-TC-RT; 80053; 81003; 83735; 84100; 85025; 93005; 93010; 93971-TC; 96372; 96374; 96375; 96376; 97116-GP; 97161-GP; 99285-25; G0378